=== PATIENT | male | born 1945 | race Caucasian/White ===

== ENCOUNTER 2017-02-03 09:09 | Inpatient (IN) | payer OTHER ==
[2017-02-03] MEDS ORDERED: LOPERAMIDE HCL 1 MG/5 ML UDCUP PO PRN (18:06)
[2017-02-03] MEDS ORDERED: ALBUTEROL 60 PUFFS/8 GM MDI IH PRN (19:14)
--- NOTE | 2017-02-03 19:28 | GHP ---
[f rep st] HISTORY AND PHYSICAL POST ADMISSION PHYSICIAN EVALUATION AND REHABILITATION TREATMENT PLAN DATE OF ADMISSION: 02/03/2017 DATE OF EVALUATION: 02/03/2017 TIME OF EVALUATION: 17:25 REFERRING FACILITY: [facility] REFERRING PHYSICIAN: Dr. Avel Lentz MD IMPAIRMENT GROUP: 1.1. DATE OF ONSET: 02/01/2017 REHABLITATION DIAGNOSIS: Right basal ganglia cerebrovascular accident with left upper and lower extremity weakness and dysphagia. ETIOLOGIC DIAGNOSIS: Left body involvement (right brain). CONSULTING PHYSICIANS: He was seen in consultation by Neurology. HISTORY OF PRESENT ILLNESS: This patient developed left-sided weakness on 02/01. Symptoms had begun the night before when he went to bed. He awoke his at 4:30 in the morning and let her know that he could not move his left side and could not talk. She called an ambulance, and he was brought to the emergency department at [facility]. Brain imaging showed a right MCA territory ischemic infarct in the basal ganglia. He had left hemiparesis. He has had some improvement since initial presentation. He has been participating in physical therapy, occupational therapy, and speech therapy. He was started on aspirin, atorvastatin, and permissive hypertension. Onset of symptoms was too remote for thrombolysis. Echocardiogram showed no cardiac source. Telemetry monitoring did not show atrial fibrillation. He had significantly elevated blood pressure and lisinopril was restarted after initiating permissive hypertension. He had bradycardia, so metoprolol was not restarted. He had some feelings of depression and was started on sertraline during his hospital stay. OTHER LABORATORIES AND STUDIES DURING HIS STAY: MRI of the brain showed some petechial hemorrhage in the right basal ganglia, and a tiny probable subacute infarct within the left marc and chronic white matter microangiopathic changes. CT angiogram showed atherosclerosis, mild in the bilateral carotid arteries, chronic occlusion of the left V3, and left proximal C4 vertebral artery segments with retrograde filling, severe atherosclerotic narrowing of the open portion of the left intradural vertebral artery. Moderate narrowing of the proximal basilar artery and mild narrowing of the right cervical internal carotid artery. Echocardiogram was overall within normal limits with an ejection fraction of 66. LABORATORY DATA: Basic metabolic profile was overall within normal limits. He had a slightly low calcium at 8.4, and a slightly elevated glucose at 138. A lipid panel showed a triglyceride of 320 and an HDL of 31. Total cholesterol was 167. LDL was 72. CBC on February 01 showed an elevated white blood cell count at 11.37 and otherwise was within normal limits. INR was normal. Troponin-I was normal. PRECAUTIONS: He is a fall risk. He has aspiration precautions. ACTIVE COMORBIDITIES: He has the tier 3 comorbidities of hemiparesis and diabetes mellitus with manifestations. PAST MEDICAL HISTORY: 1. Pneumonia in 2014 with hospitalization and bronchoscopy for mucous plugging. 2. Tobacco dependence syndrome. 3. Diabetes mellitus, type 2. 4. Peripheral vascular disease. 5. Essential hypertension. 6. Dyslipidemia. 7. Diabetic peripheral neuropathy. 8. Alzheimer disease. 9. Coronary artery disease. 10. Cataracts. 11. Chronic intermittent diarrhea. PAST SURGICAL HISTORY: He had cataract surgery 3 weeks ago and approximately 1 week ago he had blepharoplasty. He has had peripheral angiography, atherectomy of the right superficial femoral artery, and balloon angioplasty in the right superficial femoral artery. He also had left lower extremity percutaneous intervention for peripheral vascular disease. PRE-HOSPITAL MEDICATIONS: 1. Loperamide on a p.r.n. basis. 2. Aspirin 325 mg p.o. daily. 3. Diclofenac 0.1% ophthalmic drops to both eyes twice daily. 4. Donepezil 23 mg p.o. daily. 5. Erythromycin 0.5% ophthalmic ointment to sutures from blepharoplasty twice daily for 1 more week. 6. Gabapentin 1200 mg p.o. twice daily. 7. Glipizide 5 mg p.o. twice daily. 8. Glucosamine 1 tablet by mouth daily. 9. Memantine 10 mg p.o. daily. 10. Metformin 500 mg p.o. twice daily. 11. Ofloxacin 0.3% ophthalmic drops to both eyes every 6 hours. 12. Fish oil 1 capsule daily. 13. Ocuvite 1 tablet daily. 14. Vitamin B complex 1 tablet daily. 15. Lisinopril. 16. Ibuprofen 200 mg p.o. p.r.n. 17. Metoprolol-XL 50 mg daily. 18. Simvastatin 20 mg daily. ADMISSION MEDICATIONS: 1. Acetaminophen 650 mg p.o. q.6 hours p.r.n. 2. Aspirin 325 mg p.o. daily. 3. Atorvastatin 40 mg p.o. at bedtime. 4. Ocuvite 1 daily. 5. Diclofenac 0.1% eye drops each eye twice daily. 6. Donepezil 23 mg p.o. daily. 7. Erythromycin 0.5% ophthalmic ointment to sutures on eyelids twice daily. 8. Gabapentin 1200 mg p.o. twice daily. 9. Glipizide 5 mg p.o. twice daily. 10. Glucosamine/chondroitin one p.o. daily. 11. Lisinopril 10 mg p.o. daily. 12. Memantine 10 mg p.o. daily. 13. Metformin 500 mg p.o. twice daily. 14. Nicotine patch 21 mg transdermal daily. 15. Ofloxacin 0.3% 1 drop each eye q.6 hours. 16. [place]-3 fatty acids 1000 mg p.o. daily. 17. Vitamin B complex 1 p.o. daily. ALLERGIES: Listed to sulfonamide antibiotics. FAMILY HISTORY: Noncontributory. PSYCHOSOCIAL HISTORY: He is . He lives with his . He is a smoker. 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 REVIEW OF SYSTEMS: He is coughing and producing considerable phlegm. He denies carl dyspnea. He denies chest pain or palpitations. He has been having some diarrhea, which he has intermittently. He denies abdominal pain, nausea or vomiting. He denies dysuria or urinary frequency. He denies fevers or chills. He denies recent weight gain or weight loss. He is not in pain. He has some return of movement to his left arm and left leg, but notes that he lacks coordination with the left arm in particular and otherwise a 10-point review of systems is negative. PHYSICAL EXAMINATION: VITAL SIGNS: Blood pressure is 167/86, heart rate is 59 , respiratory rate is 18. Oxygen saturation is 93% on room air. Temperature is 36.7 degrees centigrade. His weight is 84.3 kg for a body mass index of 25.2. GENERAL: This is an overweight appearing man lying in bed, cooperative with frequent coughing and in no acute distress. HEENT: There are sutured incisions laterally over both eyebrows and over both upper eyelids. There is no erythema or drainage. Extraocular movements are intact. Pupils are equal, round, and reactive to light. Mucous membranes are moist. Dentition is in good condition. He has a somewhat crowded airway, Mallampati class III. NECK: Supple with no jugular venous distention. HEART: There is a regular rate and rhythm with no murmurs, rubs, or gallops. LUNGS: Reduced air movement. There are expiratory wheezes and a few fine crackles in the left lower lobe, and otherwise are clear to auscultation bilaterally. ABDOMEN: Soft, nontender, somewhat distended with normoactive bowel sounds and no hepatosplenomegaly. EXTREMITIES: There is no cyanosis, clubbing, or edema. Feet are cool, the left foot more so than the right foot. Radial pulses are 2 + bilaterally. Dorsalis pedis pulses are trace. NEUROLOGIC: He is alert and oriented x3. There is a left facial droop and otherwise cranial nerves 2-12 are grossly intact. Motor strength is 5/5 overall on the right side; on the left side is 4/5 in the hand dry talc racker, biceps, triceps, and shoulder abduction and 4 /5 overall on the left lower extremity. Sensation is intact to light touch. Deep tendon reflexes are 2+ bilaterally at the biceps and patella, and hypoactive at the Achilles tendons. Babinski reflex is indeterminant bilaterally. He has no extinction to double simultaneous stimulation. SKIN: Without skin rash or skin breakdown. CURRENT LEVEL OF FUNCTION: Per the preadmission screen: Regarding diet, feeding, and swallowing, he was on pureed and honey thick liquids. This has improved as his discharge orders call for dysphagia 2 and nectar thick liquids. Regarding grooming, he required moderate assistance. Regarding dressing, the upper extremity and lower extremities both required maximal assistance. Bladder required moderate assistance. Bed mobility required max assistance of 2 people. This has improved on the current exam. He can sit up with the assistance of 1. Transfers required maximal assistance of 2 people. Balance was noted to be poor while standing, requiring moderate assistance, and fair while sitting, requiring minimal assistance. Endurance was poor. He had pregait training. He had decreased postural control listing to the left and difficulty maintaining the left lower extremity extension while standing. He was noted to have moderate dysarthria and left facial weakness. Regarding cognition, his orientation was mildly impaired. He had otherwise mild impairment to cognition noted. IMPRESSION: Mr. Chris Lopez is a 71-year-old man who suffered a left basal ganglia cerebrovascular accident, most likely atherosclerotic with no embolic sources found on echocardiogram. There is extensive cerebrovascular disease on cerebral CT angiography. He has been allowed permissive hypertension. He has been treated with aspirin. He has been stepped up to more intensive statin medication. Metoprolol ER was discontinued due to bradycardia. He is appropriate for inpatient rehabilitation where he will benefit from physical and occupational therapies to optimize his his mobility and activities of daily living and speech language pathology regarding swallowing and cognition. He will require nursing care for fall risk, bowel and bladder, skin integrity, medication administration, and education, and he will benefit from care of a physician for comorbidities including hypertension, type 2 diabetes mellitus, peripheral vascular disease, and coronary artery disease. His goal is to return home with his family. For a safe discharge it is expected he will achieve modified independence with mobility, activities of daily living, and cognition. There will be medication education for he and his family for appropriate medication management. There will be neurologic education for the patient and family. He will have therapy with physical therapy, occupational therapy, and speech and language pathology for 45-60 minutes per day per discipline on 5-7 days of the week. His expected duration of stay is 12-14 days. It is anticipated that upon discharge, he will continue to benefit from home health services, including speech and language pathology, occupational therapy, and physical therapy, as well as a stroke support group. ASSESSMENT AND PLAN: 1. Cerebrovascular accident, left basal ganglia with left-sided hemiparesis. Physical therapy and occupational therapy to optimize mobility and activities of daily living. 2. Dysphagia and cognitive impairment, as a consequence of stroke to be assessed and treated by Speech and Language Pathology. 3. Secondary stroke prevention with blood pressure control, statin, and aspirin. 4. Hypertension. The plan regarding permissive hypertension to keep the systolic blood pressure less than 180 mg for the first week, then less than 160 mg for the second week (starting 02/09/17), and then less than 130/80 for the third week. Continue lisinopril and add subsequent medications as indicated. 5. Intermittent diarrhea. Add Imodium on a p.r.n. basis, as has been his habit at home. 6. He was started on sertraline in the hospital. Will initiate fluoxetine and not continue sertraline for optimal neurologic recovery in the hemiparetic stroke. 7. Diabetes mellitus, type 2. Continue metformin and glipizide. 8. Dementia. Given his vascula findings on brain imaging, this is as likely a vascular dementia as it is Alzheimer's. Continue memantine and donepezil. 9. Recent cataract surgery and recent left blepharoplasty. The erythromycin ophthalmic ointment is to be continued on sutures for 1 week. His reports that he was due for suture removal, and we will assess the sutures and determine whether they are ready to come out. Regarding the cataracts, he is ofloxacin eye drops, and diclofenac eyedrops with no end date. It has been 3 weeks since his surgery. The change house attendant was Dr. Lopez in [place]. We will contact his office on MondayFebruary 06, when the office is open to determine the intended duration of the eyedrops. 10. Cough with phlegm production. I have ordered a stat CBC and a stat chest x -ray, and will treat aggressively for pneumonia if he has pneumonia. 11. 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 Continue gabapentin. 12. Peripheral vascular disease. Will benefit from the same aggressive risk factor control, as will be in place for his cerebrovascular disease. 13. Prophylaxis. He was treated with subcutaneous heparin in the hospital. We will continue enoxaparin on a prophylactic dose until his mobility has improved to the point where his risk for DVT is reduced. 14. He had do not resuscitate orders in the hospital, and we will continue this status. /[id number]/MODL MTDD
[2017-02-03 19:47] LABS: % IMMATURE GRANULYOCYTES 0.2 % (0.0-1.1); ABSOLUTE IMMATURE GRANULOCYTES 0.02 10^3/uL (0.00-0.10); ADD DIFF? NO; ADD MORPH? NO; ADD SCAN? NO; ATYPICAL LYMPHOCYTE FLAG 10 (0-99); FRAGMENT RBC FLAG 0 (0-99); HEMATOCRIT 52.7 % (40.0-51.0); HEMOGLOBIN 18.8 g/dL (13.7-17.5); LEFT SHIFT FLG 0 (0-99); LIPEMIA HEMOLYSIS FLAG 90 (0-99); MEAN CELL HEMOGLOBIN 32.4 pg (27.9-34.1); MEAN CELL HEMOGLOBIN CONCENTR. 35.7 g/dL (32.4-36.7); MEAN CELL VOLUME 90.9 fL (81.5-99.8); MEAN PLATELET VOLUME 10.3 fL (8.7-11.7); PLATELET CLUMPS FLAG 0 (0-99); PLATELET COUNT 193 10^3/uL (150-400); RED CELL DISTRIBUTION WIDTH 12.3 % (11.5-15.2)
[2017-02-03] MEDS: glipiZIDE 5 MG TAB PO SCH (19:47)
[2017-02-03] MEDS: metFORMIN HCL 500 MG TAB PO SCH (19:47)
[2017-02-03] MEDS: PRESERVISION AREDS2 FORMULA EYE VIT 1 EACH PO SCH (20:12)
[2017-02-03] MEDS: GABAPENTIN 400 MG CAP PO SCH (20:26)
[2017-02-03] MEDS: ATORVASTATIN CALCIUM 40 MG TAB PO SCH (20:26)
[2017-02-03] MEDS: ERYTHROMYCIN 0.5% 1 GM OPHT.OINT EACHEYE SCH (20:26)
[2017-02-03] MEDS: OFLOXACIN 0.3% 5ML OPHT DROPS EACHEYE SCH ×2 (20:30→21:12)
[2017-02-03] MEDS: DICLOFENAC 0.1% 2.5 ML OPHT.BTL EACHEYE SCH ×2 (20:30→21:11)
[2017-02-04] MEDS: OFLOXACIN 0.3% 5ML OPHT DROPS EACHEYE SCH ×3 (06:21→12:24)
[2017-02-04 07:59] LABS: % IMMATURE GRANULYOCYTES 0.3 % (0.0-1.1); ABSOLUTE IMMATURE GRANULOCYTES 0.03 10^3/uL (0.00-0.10); ADD DIFF? NO; ADD MORPH? NO; ADD SCAN? NO; ATYPICAL LYMPHOCYTE FLAG 0 (0-99); FRAGMENT RBC FLAG 0 (0-99); HEMATOCRIT 52.8 % (40.0-51.0); HEMOGLOBIN 18.6 g/dL (13.7-17.5); LEFT SHIFT FLG 0 (0-99); LIPEMIA HEMOLYSIS FLAG 90 (0-99); MEAN CELL HEMOGLOBIN 32.2 pg (27.9-34.1); MEAN CELL HEMOGLOBIN CONCENTR. 35.2 g/dL (32.4-36.7); MEAN CELL VOLUME 91.3 fL (81.5-99.8); MEAN PLATELET VOLUME 10.3 fL (8.7-11.7); PLATELET CLUMPS FLAG 0 (0-99); PLATELET COUNT 174 10^3/uL (150-400); RED BLOOD CELL COUNT 5.78 10^6/uL (4.40-6.38); RED CELL DISTRIBUTION WIDTH 12.1 % (11.5-15.2)
[2017-02-04 08:08] LABS: ANION GAP 11 mEq/L (8-16); CALCIUM 9.1 mg/dL (8.5-10.4); CARBON DIOXIDE 24 mEq/l (22-31); CHLORIDE 106 mEq/L (97-110); CREATININE 1.1 mg/dL (0.7-1.3); GLOMERULAR FILTRATION RATE > 60; GLUCOSE 174 mg/dL (70-100); SODIUM 141 mEq/L (134-144)
[2017-02-04] MEDS: NICOTINE 21 MG/24 HR PATCH TD SCH (08:19)
[2017-02-04] MEDS: ENOXAPARIN 40 MG/0.4 ML SYR SC SCH (08:20)
[2017-02-04] MEDS: metFORMIN HCL 500 MG TAB PO SCH ×2 (08:21→17:30)
[2017-02-04] MEDS: GABAPENTIN 400 MG CAP PO SCH ×2 (08:22→20:58)
[2017-02-04] MEDS: LISINOPRIL 10 MG TAB PO SCH (08:22)
[2017-02-04] MEDS: ASPIRIN 325 MG TAB PO SCH (08:22)
[2017-02-04] MEDS: PRESERVISION AREDS2 FORMULA EYE VIT 1 EACH PO SCH ×2 (08:22→17:30)
[2017-02-04] MEDS: VITAMIN B COMPLEX 1 EA CAP/TAB PO SCH (08:22)
[2017-02-04] MEDS: MEMANTINE HCL 5 MG TAB PO SCH (08:22)
[2017-02-04] MEDS: glipiZIDE 5 MG TAB PO SCH ×2 (08:23→17:29)
[2017-02-04] MEDS: OMEGA-3 FATTY ACIDS 1,000 MG CAP PO SCH (08:23)
[2017-02-04] MEDS: GLUCOSAMINE/CHONDROITIN CAP PO SCH (08:23)
[2017-02-04] MEDS: Donepezil Hcl [Aricept] 23 MG PO SCH (08:25)
[2017-02-04] MEDS: ERYTHROMYCIN 0.5% 1 GM OPHT.OINT EACHEYE SCH ×2 (08:27→20:57)
[2017-02-04] MEDS: DICLOFENAC 0.1% 2.5 ML OPHT.BTL EACHEYE SCH (08:28)
[2017-02-04] MEDS: SERTRALINE HCL 25 MG TAB PO SCH (12:28)
[2017-02-04] MEDS: NYSTATIN SUSP 500000 UNIT/5 ML UDCUP PO SCH ×3 (12:47→20:58)
--- NOTE | 2017-02-04 14:56 | SOAPPROG ---
SOAP Progress Note Assessment/Plan: 71yo M admitted due to functional decline 2/2 R basal ganglia CVA with multiple comorbidities; DM2, HTN, dyslipidemia, PVD, dementia, chronic intermittent diarrhea. 1. 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 statin, ASA 325mg -Motor recovery: would prefer to be on sertraline per home regiment, will switch from current fluoxetine 2. HTN-Permissive to systolics of 180 for 1st week, 160 for 2nd week, then less than 130/80. cont. lisinopril 3. Intermittent Diarrhea- cont. Imodium prn (per home regiment) 4. DM2, cont. metformin and glipizide 5. Dementia- probable vascular given MR findings, cont. memantine and donepezil 6. S/p recent cataract surgery and left blepharoplasty-cont. erythomycin ointment for 1 week, RN d/w optho (Dr. Fabian in [place]) and ok to d/c eye drops today. 7. Peripheral Polyneuropathy- cont. gabapentin 8. PVD- prophy per stroke protocol 9. Productive Cough- WBCs stable from OSH, CXR with some bronchial thickening but no consolidation, symptoms improving, will CTM 10. prophy- cont LMWH, no GI indicated Code Status: DNR per prior hospital admission, will cont. Dispo: home with , MERARY 14 days 02/04/17 15:08 Subjective: Cough improving this a.m, and prior CXR with just some bronchial thickening, WBC stable, no fevers. Feeling well this a.m. denies SOB/chills. Objective: Vital Signs Temp Pulse Resp BP Pulse Ox 36.8 C 64 16 118/66 93 02/04/17 14:24 02/04/17 14:24 02/04/17 14:24 02/04/17 14:24 02/04/17 14:24 Laboratory Results 02/04/17 06:40 02/04/17 06:40 02/03/17 02/04/17 02/05/17 05:59 05:59 05:59 Intake Total 160 Output Total 450 Balance -450 160 Laboratory Tests 02/03/17 02/04/17 18:00 06:40 WBC 10.21 H 10.84 H Hgb 18.8 H 18.6 H - Pending Discharge Pending Discharge Within 24 Hours: No Pending Discharge Within 48 Hours: No Physical Exam - Physical Exam General Appearance: alert, no apparent distress Neck: supple Respiratory: lungs clear, other (decreased effort), No crackles, No rales, No wheezing Cardiac/Chest: regular rate, rhythm Abdomen: non-tender, soft Skin: normal color, warm/dry Neuro/Psych: alert, normal mood/affect, oriented x 3, motor weakness ICD10 Worksheet Patient Problems: Problems Problem Status Onset Chronic Disease Mgmt/Transitional Care Acute PNA (pneumonia) Acute PVD (peripheral vascular disease) Acute Tobacco abuse Acute
[2017-02-04] MEDS: ATORVASTATIN CALCIUM 40 MG TAB PO SCH (20:58)
[2017-02-05] MEDS: NYSTATIN SUSP 500000 UNIT/5 ML UDCUP PO SCH ×4 (05:55→20:47)
[2017-02-05] MEDS: SERTRALINE HCL 25 MG TAB PO SCH (08:25)
[2017-02-05] MEDS: OMEGA-3 FATTY ACIDS 1,000 MG CAP PO SCH (08:27)
[2017-02-05] MEDS: GLUCOSAMINE/CHONDROITIN CAP PO SCH (08:29)
[2017-02-05] MEDS: MEMANTINE HCL 5 MG TAB PO SCH (08:30)
[2017-02-05] MEDS: glipiZIDE 5 MG TAB PO SCH ×2 (08:31→17:02)
[2017-02-05] MEDS: ENOXAPARIN 40 MG/0.4 ML SYR SC SCH (08:31)
[2017-02-05] MEDS: GABAPENTIN 400 MG CAP PO SCH ×2 (08:31→20:47)
[2017-02-05] MEDS: LISINOPRIL 10 MG TAB PO SCH (08:31)
[2017-02-05] MEDS: VITAMIN B COMPLEX 1 EA CAP/TAB PO SCH (08:31)
[2017-02-05] MEDS: PRESERVISION AREDS2 FORMULA EYE VIT 1 EACH PO SCH ×2 (08:31→17:02)
[2017-02-05] MEDS: ASPIRIN 325 MG TAB PO SCH (08:31)
[2017-02-05] MEDS: ERYTHROMYCIN 0.5% 1 GM OPHT.OINT EACHEYE SCH ×2 (08:34→20:47)
[2017-02-05] MEDS: NICOTINE 21 MG/24 HR PATCH TD SCH (08:36)
[2017-02-05] MEDS: metFORMIN HCL 500 MG TAB PO SCH ×2 (08:40→17:02)
[2017-02-05] MEDS ORDERED: SERTRALINE HCL 25 MG TAB PO SCH (09:00)
--- NOTE | 2017-02-05 14:30 | SOAPPROG ---
SOAP Progress Note Assessment/Plan: 71yo M admitted due to functional decline 2/2 R basal ganglia CVA with multiple comorbidities; DM2, HTN, dyslipidemia, PVD, dementia, chronic intermittent diarrhea. 1. 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 statin, ASA 325mg -Motor recovery: would prefer to be on sertraline per home regiment 2. HTN-Permissive to systolics of 180 for 1st week, 160 for 2nd week, then less than 130/80. cont. lisinopril 3. Intermittent Diarrhea- cont. Imodium prn (per home regiment) 4. DM2, cont. metformin and glipizide 5. Dementia- probable vascular given MR findings, cont. memantine and donepezil 6. S/p recent cataract surgery and left blepharoplasty-cont. erythomycin ointment for 1 week, RN d/w optho (Dr. Fabian in [place]) and ok to d/c eye drops, will come this week to remove sutures 7. Peripheral Polyneuropathy- cont. gabapentin 8. PVD- prophy per stroke protocol 9. Productive Cough- WBCs stable from OSH, CXR with some bronchial thickening but no consolidation, symptoms improving, will CTM 10. prophy- cont LMWH, no GI indicated Code Status: DNR per prior hospital admission, will cont. Dispo: home with MERARY 14 days Subjective: No events. C/o lethargy, is sleeping reasonably well at night but has nohemy skipping usual afternoon nap. Will try to have this scheduled into therapy. Denies cough/SOB/pain. Objective: Vital Signs Temp Pulse Resp BP Pulse Ox 36.9 C 76 16 147/70 H 91 L 02/05/17 07:08 02/05/17 07:08 02/05/17 07:08 02/05/17 07:08 02/05/17 07:08 Laboratory Results 02/04/17 06:40 02/04/17 06:40 02/04/17 02/05/17 02/06/17 05:59 05:59 05:59 Intake Total 260 118 Output Total 450 550 Balance -450 -290 118 - Pending Discharge Pending Discharge Within 24 Hours: No Pending Discharge Within 48 Hours: No Physical Exam - Physical Exam General Appearance: alert, no apparent distress Neck: supple Respiratory: lungs clear, normal breath sounds, No respiratory distress, No accessory muscle use, No wheezing Cardiac/Chest: regular rate, rhythm Abdomen: non-tender, soft Skin: normal color, warm/dry Neuro/Psych: alert, normal mood/affect, motor weakness ICD10 Worksheet Patient Problems: Problems Problem Status Onset Chronic Disease Mgmt/Transitional Care Acute PNA (pneumonia) Acute PVD (peripheral vascular disease) Acute Tobacco abuse Acute
[2017-02-05] MEDS: Donepezil Hcl [Aricept] 23 MG PO SCH (16:15)
[2017-02-05] MEDS: ATORVASTATIN CALCIUM 40 MG TAB PO SCH (20:47)
[2017-02-06] MEDS: NYSTATIN SUSP 500000 UNIT/5 ML UDCUP PO SCH ×4 (05:48→21:01)
[2017-02-06] MEDS: ENOXAPARIN 40 MG/0.4 ML SYR SC SCH (08:52)
[2017-02-06] MEDS: PRESERVISION AREDS2 FORMULA EYE VIT 1 EACH PO SCH ×2 (08:53→17:13)
[2017-02-06] MEDS: ASPIRIN 325 MG TAB PO SCH (08:53)
[2017-02-06] MEDS: GABAPENTIN 400 MG CAP PO SCH ×2 (08:54→21:00)
[2017-02-06] MEDS: MEMANTINE HCL 5 MG TAB PO SCH (08:55)
[2017-02-06] MEDS: glipiZIDE 5 MG TAB PO SCH ×2 (08:55→17:13)
[2017-02-06] MEDS: LISINOPRIL 10 MG TAB PO SCH (08:55)
[2017-02-06] MEDS: VITAMIN B COMPLEX 1 EA CAP/TAB PO SCH (08:56)
[2017-02-06] MEDS: NICOTINE 21 MG/24 HR PATCH TD SCH (08:56)
[2017-02-06] MEDS: OMEGA-3 FATTY ACIDS 1,000 MG CAP PO SCH (08:56)
[2017-02-06] MEDS: metFORMIN HCL 500 MG TAB PO SCH ×2 (08:57→17:14)
[2017-02-06] MEDS: GLUCOSAMINE/CHONDROITIN CAP PO SCH (08:58)
--- NOTE | 2017-02-06 09:41 | PDOREHIP ---
Admission [facility] - Admission - 3 Day Assessment Period Admission Date/Day 1: 02/03/17 Day 2: 02/04/17 Day 3: 02/05/17 - Active Diagnoses Comorbidities and Co-existing Conditions at Admission: 39149. PVD or PAD, 04809. DM (e.g. diabetic retinopathy, nephropathy, and neuropathy) - Skin Conditions Unhealed Pressure Ulcer (1 or more/Stage 1 or >)-Admission: 0. No
--- NOTE | 2017-02-06 09:42 | SOAPPROG ---
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 Initial [id number]. Mod A bed mobility, min - modA of 2 for transfers, standing balance min to mod A. Physical therapy and occupational therapy to optimize mobility and activities of daily living. * Dysphagia and cognitive impairment. DD2 NTL texture with cueing to slow down.. Moderate dysarthria, worse with fatigue. Decreased exec fn, SOP, attn. Continue Speech and Language Pathology. * Secondary stroke prevention with blood pressure control, statin, and aspirin. * Permissive Hypertension. Keep the systolic blood pressure less than 180 mg for the first week, then less than 160 mg for the second week (starting 02/09/17) , and then less than 130/80 for the third week. Continue lisinopril and add subsequent medications as indicated. * Recent cataract surgery and recent left blepharoplasty. The erythromycin ophthalmic ointment is to be continued on sutures for 1 week. His reports that he was due for suture removal, and we will assess the sutures and determine whether they are ready to come out. Regarding the cataracts, he is ofloxacin eye drops, and diclofenac eyedrops with no end date. It has been 3 weeks since his surgery. The metaphysics teacher was Dr. Lopez in [place]. We will contact his office on MondayFebruary 06, when the office is open to determine the intended duration of the eyedrops. Chronic/stable conditions: * Intermittent diarrhea. Add Imodium on a p.r.n. basis, as has been his habit at home. * Depression? Prefers sertraline to fluoxetine so sertraline was restarted ( fluoxetine had been stared for neurorecovery). Asks for HS dosing as he thinks it is sedating. * Diabetes mellitus, type 2. Continue metformin and glipizide. * Dementia. Given his vascular findings on brain imaging, this is as likely a vascular dementia as it is Alzheimer's. Continue memantine and donepezil. * Cough with phlegm production, resolved. Leukocytosis on CBC 02/03/17 & but cough much improved and hypoxia mostly at night and not severe; CXR showed bronchitis; no treatment at present.. 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 Continue gabapentin. * Peripheral vascular disease. Will benefit from the same aggressive risk factor control, as will be in place for his cerebrovascular disease. * Prophylaxis. He was treated with subcutaneous heparin in the hospital. We will continue enoxaparin on a prophylactic dose until his mobility has improved to the point where his risk for DVT is reduced. Attended staffing, 15 min. D/W case mgmt, nursing, PT, OT, LOGISTICS MANAGER. Expect up to 4 - 6 weeks LOS; tentative discharge date 02/26/17. Reassess weekly. 02/06/17 14:24 Subjective: Nurse reports he wants sertraline at bedtime, as it makes him sleepy. Requests "5 hour energy" supplement in the afternoon. Reports his usual habit at home is t stay up late and sleep late. Thinks he sleeps well, though he awakens during the night. Says he snores sometimes. Objective: Vital Signs Temp Pulse Resp BP Pulse Ox 36.9 C 67 19 138/87 H 94 02/06/17 07:40 02/06/17 07:40 02/06/17 07:40 02/06/17 08:55 02/06/17 07:40 Laboratory Results 02/04/17 06:40 02/04/17 06:40 02/05/17 02/06/17 02/07/17 05:59 05:59 05:59 Intake Total 260 554 120 Output Total 550 150 Balance -290 404 120 - Time Spent With Patient Time Spent With Patient: Greater than 35 minutes floor time today, including more than 50% of time in coordination of care during staffing meeting, and counseling patient. 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
[2017-02-06] MEDS: Donepezil Hcl [Aricept] 23 MG PO SCH (10:45)
[2017-02-06] MEDS: ERYTHROMYCIN 0.5% 1 GM OPHT.OINT EACHEYE SCH ×2 (10:46→21:08)
[2017-02-06] MEDS: SERTRALINE HCL 25 MG TAB PO SCH (10:46)
--- NOTE | 2017-02-06 13:47 | SOAPPROG ---
SOAP Progress Note Assessment/Plan: Assessment: 1. Cerebrovascular accident, left basal ganglia with left-sided hemiparesis. Physical therapy and occupational therapy to optimize mobility and activities of daily living. 2. Dysphagia and cognitive impairment, as a consequence of stroke to be assessed and treated by Speech and Language Pathology. 3. Secondary stroke prevention with blood pressure control, statin, and aspirin. 4. Hypertension. The plan regarding permissive hypertension to keep the systolic blood pressure less than 180 mg for the first week, then less than 160 mg for the second week (starting 02/09/17), and then less than 130/80 for the third week. Continue lisinopril and add subsequent medications as indicated. 5. Intermittent diarrhea. Add Imodium on a p.r.n. basis, as has been his habit at home. 6. He was started on sertraline in the hospital. Will initiate fluoxetine and not continue sertraline for optimal neurologic recovery in the hemiparetic stroke. 7. Diabetes mellitus, type 2. Continue metformin and glipizide. 8. Dementia. Given his vascula findings on brain imaging, this is as likely a vascular dementia as it is Alzheimer's. Continue memantine and donepezil. 9. Recent cataract surgery and recent left blepharoplasty. The erythromycin ophthalmic ointment is to be continued on sutures for 1 week. His reports that he was due for suture removal, and we will assess the sutures and determine whether they are ready to come out. Regarding the cataracts, he is ofloxacin eye drops, and diclofenac eyedrops with no end date. It has been 3 weeks since his surgery. The hog killer was Dr. Lopez in [place]. We will contact his office on MondayFebruary 06, when the office is open to determine the intended duration of the eyedrops. 10. Cough with phlegm production. I have ordered a stat CBC and a stat chest x -ray, and will treat aggressively for pneumonia if he has pneumonia. 11. 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 Continue gabapentin. 12. Peripheral vascular disease. Will benefit from the same aggressive risk factor control, as will be in place for his cerebrovascular disease. 13. Prophylaxis. He was treated with subcutaneous heparin in the hospital. We will continue enoxaparin on a prophylactic dose until his mobility has improved to the point where his risk for DVT is reduced. 02/06/17 09:42 Objective: Vital Signs Temp Pulse Resp BP Pulse Ox 36.9 C 67 19 138/87 H 94 02/06/17 07:40 02/06/17 07:40 02/06/17 07:40 02/06/17 08:55 02/06/17 07:40 Laboratory Results 02/04/17 06:40 02/04/17 06:40 02/05/17 02/06/17 02/07/17 05:59 05:59 05:59 Intake Total 260 554 220 Output Total 550 150 125 Balance -290 404 95 - Time Spent With Patient Time Spent With Patient: Greater than 35 minutes floor time today, including more than 50% of time in coordination of care during staffing meeting, and counseling patient. ICD10 Worksheet Patient Problems: Problems Problem Status Onset Chronic Disease Mgmt/Transitional Care Acute PNA (pneumonia) Acute PVD (peripheral vascular disease) Acute Tobacco abuse Acute
[2017-02-06] MEDS ORDERED: [UNRECOGNIZED DRUG - OTHER] PO PRN (14:20)
[2017-02-06] MEDS: [UNRECOGNIZED DRUG - OTHER] PO PRN (15:43)
[2017-02-06] MEDS ORDERED: MELATONIN 3 MG TAB PO PRN (20:18)
[2017-02-06] MEDS: ATORVASTATIN CALCIUM 40 MG TAB PO SCH (21:00)
[2017-02-06] MEDS ORDERED: SERTRALINE HCL 25 MG TAB PO SCH (21:00)
[2017-02-07] MEDS: NYSTATIN SUSP 500000 UNIT/5 ML UDCUP PO SCH ×4 (05:28→20:44)
[2017-02-07] MEDS: glipiZIDE 5 MG TAB PO SCH ×2 (08:30→16:39)
[2017-02-07] MEDS: LOPERAMIDE HCL 2 MG CAP PO PRN (09:21)
[2017-02-07] MEDS ORDERED: LOPERAMIDE HCL 2 MG CAP PO ONE (09:28)
[2017-02-07] MEDS: ASPIRIN 325 MG TAB PO SCH (09:59)
[2017-02-07] MEDS: PRESERVISION AREDS2 FORMULA EYE VIT 1 EACH PO SCH ×2 (09:59→16:39)
[2017-02-07] MEDS: ENOXAPARIN 40 MG/0.4 ML SYR SC SCH (10:00)
[2017-02-07] MEDS: Donepezil Hcl [Aricept] 23 MG PO SCH (10:00)
[2017-02-07] MEDS: ERYTHROMYCIN 0.5% 1 GM OPHT.OINT EACHEYE SCH ×2 (10:02→20:46)
[2017-02-07] MEDS: GABAPENTIN 400 MG CAP PO SCH ×2 (10:02→20:45)
[2017-02-07] MEDS: LISINOPRIL 10 MG TAB PO SCH (10:03)
[2017-02-07] MEDS: MEMANTINE HCL 5 MG TAB PO SCH (10:03)
[2017-02-07] MEDS: GLUCOSAMINE/CHONDROITIN CAP PO SCH (10:03)
[2017-02-07] MEDS: metFORMIN HCL 500 MG TAB PO SCH ×2 (10:03→16:39)
[2017-02-07] MEDS: VITAMIN B COMPLEX 1 EA CAP/TAB PO SCH (10:04)
[2017-02-07] MEDS: NICOTINE 21 MG/24 HR PATCH TD SCH (10:04)
[2017-02-07] MEDS: OMEGA-3 FATTY ACIDS 1,000 MG CAP PO SCH (10:04)
--- NOTE | 2017-02-07 10:14 | SOAPPROG ---
SOAP Progress Note Assessment/Plan: Assessment: 71 yo M who suffered a CVA R MCA on 01/23/17 with L weakness, dysphagia and dysarthria, and comorbid CAD, CHF, COPD, DM2: 02/07/2017 to clarify, it does not appear that patient has been on fluoxetine in the past. Patient desires to switch to fluoxetine from Zoloft, will start dose tomorrow morning. Endorses some ongoing fatigue, normal TSH as of August 2016, no anemia. Giving one-time dose of Imodium 2 mg for diarrhea. Also notified Dr. Jones that the patient had a stroke and is currently on inpatient rehabilitation. 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 * Cerebrovascular accident, left basal ganglia with left-sided hemiparesis. Initial FIM63. Mod A bed mobility, min - modA of 2 for transfers, standing balance min to mod A. Physical therapy and occupational therapy to optimize mobility and activities of daily living. * Dysphagia and cognitive impairment. DD2 NTL texture with cueing to slow down.. Moderate dysarthria, worse with fatigue. Decreased exec fn, SOP, attn. Continue Speech and Language Pathology. * Secondary stroke prevention with blood pressure control, statin, and aspirin. * Permissive Hypertension. Keep the systolic blood pressure less than 180 mg for the first week, then less than 160 mg for the second week (starting 02/09/17) , and then less than 130/80 for the third week. Continue lisinopril and add subsequent medications as indicated. * Recent cataract surgery and recent left blepharoplasty. The erythromycin ophthalmic ointment is to be continued on sutures for 1 week. His reports that he was due for suture removal, and we will assess the sutures and determine whether they are ready to come out. Regarding the cataracts, he is ofloxacin eye drops, and diclofenac eyedrops with no end date. It has been 3 weeks since his surgery. The tractor drill operator was Dr. Lopez in [place]. We will contact his office on MondayFebruary 06, when the office is open to determine the intended duration of the eyedrops. * Depression: Has had some depression in the past, endorses low mood now without suicidal ideation. Switching from Zoloft to fluoxetine at his request. To clarify, it does not appear that he's been on fluoxetine in the past. * Fatigue: likely secondary to stroke, normal TSH, no anemia, no other clear etiologies at this point. Continue to follow Chronic/stable conditions: * Intermittent diarrhea. Add Imodium on a p.r.n. basis, as has been his habit at home. * Diabetes mellitus, type 2. Continue metformin and glipizide. * Dementia. Given his vascular findings on brain imaging, this is as likely a vascular dementia as it is Alzheimer's. Continue memantine and donepezil. Dr. Jones notified * Cough with phlegm production, resolved. Leukocytosis on CBC 02/03/17 & but cough much improved and hypoxia mostly at night and not severe; CXR showed bronchitis; no treatment at present.. 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 Continue gabapentin. * Peripheral vascular disease. Will benefit from the same aggressive risk factor control, as will be in place for his cerebrovascular disease. * Prophylaxis. He was treated with subcutaneous heparin in the hospital. We will continue enoxaparin on a prophylactic dose until his mobility has improved to the point where his risk for DVT is reduced. Expect up to 4 - 6 weeks LOS; tentative discharge date 02/26/17. Reassess weekly. Plan: 02/07/17 10:11 Subjective: CC: Fatigue no acute events overnight. Met with patient, , and daughter. Patient endorses some low mood, has had some pre-morbidly. Denies having been on fluoxetine in the past, was started on Zoloft at the end of his hospitalization and transferred to rehab. He does endorse that his therapies are somewhat limited by fatigue, and has had some of this issue in the past. He would take energy drinks twice a day. Unclear if this is worse for baseline. He also notes some mild diarrhea, he would take PRN Imodium as an outpatient which is requesting today. Also he is requesting that we notify Dr. Jones, his neurologist, that he has had a stroke. Denies any new shortness of breath, chest pain, any new numbness, tingling, or weakness. Objective: Vital Signs Temp Pulse Resp BP Pulse Ox 36.6 C 61 16 140/60 H 92 02/07/17 08:00 02/07/17 08:00 02/07/17 08:00 02/07/17 10:03 02/07/17 08:00 Laboratory Results 02/04/17 06:40 02/04/17 06:40 02/06/17 02/07/17 02/08/17 05:59 05:59 05:59 Intake Total 554 510 50 Output Total 150 575 Balance 404 -65 50 Physical Exam - Physical Exam General Appearance: WD/WN, alert, no apparent distress Respiratory: No respiratory distress, No accessory muscle use Cardiac/Chest: regular rate, rhythm, No edema Skin: normal color, warm/dry, cyanosis, other (incisions about eyes are healing , + ecchymosis) Lymphatic: no adenopathy, inguinal node tender (L) Extremities: No pedal edema, No swelling Neuro/Psych: alert, oriented x 3, motor weakness (also decreased rapid alternating movements on the left hand. ), depressed affect, No normal mood/ affect (low mood, congruent affect, slightly beligerent on greeting but softened when talking about his prior work) ICD10 Worksheet Patient Problems: Problems Problem Status Onset Chronic Disease Mgmt/Transitional Care Acute PNA (pneumonia) Acute PVD (peripheral vascular disease) Acute Tobacco abuse Acute
[2017-02-07] MEDS: BENEFIBER/NUTRISOURCE FIBER PKT 1 EACH PO SCH ×2 (12:50→20:43)
[2017-02-07] MEDS: [UNRECOGNIZED DRUG - OTHER] PO PRN (14:24)
[2017-02-07] MEDS: ATORVASTATIN CALCIUM 40 MG TAB PO SCH (20:45)
[2017-02-07] MEDS ORDERED: traZODone 50 MG TAB PO SCH (21:00)
[2017-02-08] MEDS: NYSTATIN SUSP 500000 UNIT/5 ML UDCUP PO SCH ×4 (05:57→20:31)
[2017-02-08] MEDS: NICOTINE 21 MG/24 HR PATCH TD SCH (08:10)
[2017-02-08] MEDS: glipiZIDE 5 MG TAB PO SCH ×2 (08:11→17:55)
[2017-02-08] MEDS: ASPIRIN 325 MG TAB PO SCH (08:11)
[2017-02-08] MEDS: GLUCOSAMINE/CHONDROITIN CAP PO SCH (08:11)
[2017-02-08] MEDS: BENEFIBER/NUTRISOURCE FIBER PKT 1 EACH PO SCH ×2 (08:11→20:12)
[2017-02-08] MEDS: MEMANTINE HCL 5 MG TAB PO SCH (08:11)
[2017-02-08] MEDS: VITAMIN B COMPLEX 1 EA CAP/TAB PO SCH (08:11)
[2017-02-08] MEDS: OMEGA-3 FATTY ACIDS 1,000 MG CAP PO SCH (08:11)
[2017-02-08] MEDS: GABAPENTIN 400 MG CAP PO SCH ×2 (08:11→20:16)
[2017-02-08] MEDS: PRESERVISION AREDS2 FORMULA EYE VIT 1 EACH PO SCH ×2 (08:12→17:55)
[2017-02-08] MEDS: Donepezil Hcl [Aricept] 23 MG PO SCH (08:12)
[2017-02-08] MEDS: ENOXAPARIN 40 MG/0.4 ML SYR SC SCH (08:12)
[2017-02-08] MEDS: ERYTHROMYCIN 0.5% 1 GM OPHT.OINT EACHEYE SCH (08:12)
[2017-02-08] MEDS: FLUoxetine 20 MG CAP PO SCH (08:12)
[2017-02-08] MEDS: metFORMIN HCL 500 MG TAB PO SCH ×2 (08:12→17:55)
[2017-02-08] MEDS: LISINOPRIL 10 MG TAB PO SCH (08:15)
[2017-02-08] MEDS: [UNRECOGNIZED DRUG - OTHER] PO PRN (11:52)
--- NOTE | 2017-02-08 12:11 | SOAPPROG ---
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 Initial FIM 63 on 02/06/17. Mod A bed mobility, min - modA of 2 for transfers, standing balance min to mod A. Physical therapy and occupational therapy to optimize mobility and activities of daily living. * Dysphagia and cognitive impairment. DD2 NTL texture with cueing to slow down.. Moderate dysarthria, worse with fatigue. Decreased exec fn, SOP, attn. Continue Speech and Language Pathology. * Secondary stroke prevention with blood pressure control, statin, and aspirin. * Permissive Hypertension. Keep the systolic blood pressure less than 180 mg for the first week, then less than 160 mg for the second week (starting 02/09/17) , and then less than 130/80 for the third week. Continue lisinopril and add subsequent medications as indicated. * Somnolence. Related to fluoxetine started today, or trazodone last night? Change trazodone from 50 mg QHS to 25 mg QHS. Chronic/stable conditions: * Recent cataract surgery and recent left blepharoplasty. Seen by compressor operator yesterday 02/07/17 and sutures removed. D/C erythromycin topical 02/08/17. Post-cataract eyefrops were discontinued 02/05/17 after discussion with compressor operator's office. * Intermittent diarrhea. Add Imodium on a p.r.n. basis, as has been his habit at home. * Depression? Prefers sertraline to fluoxetine so sertraline was restarted ( fluoxetine had been stared for neurorecovery). Asks for HS dosing as he thinks it is sedating. * Diabetes mellitus, type 2. Continue metformin and glipizide. * Dementia. Given his vascular findings on brain imaging, this is as likely a vascular dementia as it is Alzheimer's. Continue memantine and donepezil. * Cough with phlegm production, resolved. Leukocytosis on CBC 02/03/17 & but cough much improved and hypoxia mostly at night and not severe; CXR showed bronchitis; no treatment at present.. 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 Continue gabapentin. * Peripheral vascular disease. Will benefit from the same aggressive risk factor control, as will be in place for his cerebrovascular disease. * Prophylaxis. He was treated with subcutaneous heparin in the hospital. We will continue enoxaparin on a prophylactic dose until his mobility has improved to the point where his risk for DVT is reduced. Expect up to 4 - 6 weeks LOS; tentative discharge date 02/26/17. Reassess weekly. 02/08/17 12:07 Subjective: Noted to be sleepy by staff. No complaints. Denies f/c, cough/dyspnea, n/v/c/ d. Thinks he slept well last night. Objective: Vital Signs Temp Pulse Resp BP Pulse Ox 36.8 C 65 18 111/63 93 02/08/17 06:11 02/08/17 06:11 02/08/17 06:11 02/08/17 08:15 02/08/17 06:11 Laboratory Results 02/04/17 06:40 02/04/17 06:40 02/07/17 02/08/17 02/09/17 05:59 05:59 05:59 Intake Total 510 1308 240 Output Total 575 1075 Balance -65 233 240 Physical Exam - Physical Exam General Appearance: WD/WN, alert, no apparent distress Respiratory: normal breath sounds, No crackles, No rhonchi, No wheezing Cardiac/Chest: regular rate, rhythm, No edema Neuro/Psych: alert, normal mood/affect, oriented x 3, motor weakness (LUE & LLE) , other ICD10 Worksheet Patient Problems: Problems Problem Status Onset Chronic Disease Mgmt/Transitional Care Acute PNA (pneumonia) Acute PVD (peripheral vascular disease) Acute Tobacco abuse Acute
[2017-02-08] MEDS: ATORVASTATIN CALCIUM 40 MG TAB PO SCH (20:15)
[2017-02-08] MEDS: traZODone 50 MG TAB PO SCH (20:16)
[2017-02-09] MEDS: NYSTATIN SUSP 500000 UNIT/5 ML UDCUP PO SCH ×4 (05:34→20:25)
[2017-02-09] MEDS: metFORMIN HCL 500 MG TAB PO SCH ×2 (08:11→18:33)
[2017-02-09] MEDS: PRESERVISION AREDS2 FORMULA EYE VIT 1 EACH PO SCH ×2 (08:11→18:33)
[2017-02-09] MEDS: glipiZIDE 5 MG TAB PO SCH ×2 (08:11→18:33)
--- NOTE | 2017-02-09 08:12 | SOAPPROG ---
SOAP Progress Note Assessment/Plan: Assessment: 71 yo M who suffered a CVA R MCA on 01/23/17 with L weakness, dysphagia and dysarthria, and comorbid CAD, CHF, COPD, DM2: 02/08/2017 slept much better, fatigue and less of an issue this morning. Patient interested in continuing napping and energy drinks, counseled him to avoid napping and energy drinks in the late afternoon. Fatigue less likely related to fluoxetine, continue. Mildly hypertensive, systolics less than 160, continue to monitor and continue permissive hypertension. Mood better, no suicidal ideation. * Cerebrovascular accident, left basal ganglia with left-sided hemiparesis. Initial FIM63. Mod A bed mobility, min - modA of 2 for transfers, standing balance min to mod A. Physical therapy and occupational therapy to optimize mobility and activities of daily living. * Dysphagia and cognitive impairment. DD2 NTL texture with cueing to slow down. Moderate dysarthria, worse with fatigue. Decreased exec fn, SOP, attn. Continue Speech and Language Pathology. * Secondary stroke prevention with blood pressure control, statin, and aspirin. * Permissive Hypertension. Keep the systolic blood pressure less than 180 mg for the first week, then less than 160 mg for the second week (starting 02/09/17) , and then less than 130/80 for the third week. Continue lisinopril and add subsequent medications as indicated. * Depression: Has had some depression in the past, endorses low mood now without suicidal ideation. Switched from Zoloft to fluoxetine at his request. To clarify, it does not appear that he's been on fluoxetine in the past. * Fatigue: likely secondary to stroke and poor sleep, normal TSH, no anemia, no other clear etiologies at this point. Continue to follow, encourage good sleep hygiene. Chronic/stable conditions: * Recent cataract surgery and recent left blepharoplasty. The erythromycin ophthalmic ointment is to be continued on sutures for 1 week. His reports that he was due for suture removal, and we will assess the sutures and determine whether they are ready to come out. Regarding the cataracts, he is ofloxacin eye drops, and diclofenac eyedrops with no end date. It has been 3 weeks since his surgery. The tinner automatic was Dr. Lopez in [place]. * Intermittent diarrhea. Add Imodium on a p.r.n. basis, as has been his habit at home. * Diabetes mellitus, type 2. Continue metformin and glipizide. * Dementia. Given his vascular findings on brain imaging, this is as likely a vascular dementia as it is Alzheimer's. Continue memantine and donepezil. Dr. Jones notified * Cough with phlegm production, resolved. Leukocytosis on CBC 02/03/17 & but cough much improved and hypoxia mostly at night and not severe; CXR showed bronchitis; no treatment at present.. 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 Continue gabapentin. * Peripheral vascular disease. Will benefit from the same aggressive risk factor control, as will be in place for his cerebrovascular disease. * Prophylaxis. He was treated with subcutaneous heparin in the hospital. We will continue enoxaparin on a prophylactic dose until his mobility has improved to the point where his risk for DVT is reduced. Expect up to 4 - 6 weeks LOS; tentative discharge date 02/26/17. Reassess weekly. 02/07/17 10:11 02/09/17 08:08 Subjective: CC: fatigue No acute events overnight. Patient endorses that he slept better last night than previous nights, fatigue seems much better this morning. He was concerned that fatigue might be related to fluoxetine, notes that his mood is much better than prior days, no suicidal ideation. No new chest pain, shortness of breath, numbness, tingling, or weakness. When I counseled him on permissive hypertension and explained what was, he asked me "have you ever heard of permissive bitchiness?" Objective: Vital Signs Temp Pulse Resp BP Pulse Ox 36.8 C 58 L 18 147/79 H 90 L 02/09/17 05:41 02/09/17 05:41 02/09/17 05:41 02/09/17 05:41 02/09/17 05:41 Laboratory Results 02/04/17 06:40 02/04/17 06:40 02/08/17 02/09/17 02/10/17 05:59 05:59 05:59 Intake Total 1308 667 Output Total 3390 1350 Balance 233 -683 Physical Exam - Physical Exam General Appearance: WD/WN, alert, no apparent distress EENT: other (maria eugenia occular eccymoses, incisions healing well), No scleral icterus (R), No scleral icterus (L) Respiratory: No accessory muscle use, No decreased breath sounds Cardiac/Chest: normal peripheral pulses, regular rate, rhythm Skin: normal color, warm/dry, No cyanosis Extremities: non-tender, No swelling Neuro/Psych: alert, other (improved mood, still a bit low, congruent affect) ICD10 Worksheet Patient Problems: Problems Problem Status Onset Chronic Disease Mgmt/Transitional Care Acute PNA (pneumonia) Acute PVD (peripheral vascular disease) Acute Tobacco abuse Acute
[2017-02-09] MEDS: Donepezil Hcl [Aricept] 23 MG PO SCH (09:14)
[2017-02-09] MEDS: ASPIRIN 325 MG TAB PO SCH (09:14)
[2017-02-09] MEDS: BENEFIBER/NUTRISOURCE FIBER PKT 1 EACH PO SCH ×2 (09:14→20:25)
[2017-02-09] MEDS: NICOTINE 21 MG/24 HR PATCH TD SCH (09:14)
[2017-02-09] MEDS: GABAPENTIN 400 MG CAP PO SCH ×2 (09:14→20:24)
[2017-02-09] MEDS: VITAMIN B COMPLEX 1 EA CAP/TAB PO SCH (09:15)
[2017-02-09] MEDS: OMEGA-3 FATTY ACIDS 1,000 MG CAP PO SCH (09:15)
[2017-02-09] MEDS: MEMANTINE HCL 5 MG TAB PO SCH (09:15)
[2017-02-09] MEDS: FLUoxetine 20 MG CAP PO SCH (09:15)
[2017-02-09] MEDS: ENOXAPARIN 40 MG/0.4 ML SYR SC SCH (09:15)
[2017-02-09] MEDS: LISINOPRIL 10 MG TAB PO SCH (09:20)
[2017-02-09] MEDS: GLUCOSAMINE/CHONDROITIN CAP PO SCH (09:20)
[2017-02-09] MEDS: [UNRECOGNIZED DRUG - OTHER] PO PRN ×2 (11:45→15:26)
[2017-02-09] MEDS: ATORVASTATIN CALCIUM 40 MG TAB PO SCH (20:23)
[2017-02-09] MEDS: traZODone 50 MG TAB PO SCH (20:24)
[2017-02-10] MEDS: NYSTATIN SUSP 500000 UNIT/5 ML UDCUP PO SCH ×4 (06:32→20:36)
[2017-02-10] MEDS: glipiZIDE 5 MG TAB PO SCH ×2 (08:04→17:15)
[2017-02-10] MEDS: metFORMIN HCL 500 MG TAB PO SCH ×2 (08:04→17:15)
[2017-02-10] MEDS: PRESERVISION AREDS2 FORMULA EYE VIT 1 EACH PO SCH ×2 (08:04→17:15)
[2017-02-10] MEDS: OMEGA-3 FATTY ACIDS 1,000 MG CAP PO SCH (09:14)
[2017-02-10] MEDS: MEMANTINE HCL 5 MG TAB PO SCH (09:14)
[2017-02-10] MEDS: ASPIRIN 325 MG TAB PO SCH (09:14)
[2017-02-10] MEDS: GLUCOSAMINE/CHONDROITIN CAP PO SCH (09:14)
[2017-02-10] MEDS: GABAPENTIN 400 MG CAP PO SCH ×2 (09:14→20:36)
[2017-02-10] MEDS: FLUoxetine 20 MG CAP PO SCH (09:15)
[2017-02-10] MEDS: NICOTINE 21 MG/24 HR PATCH TD SCH (09:15)
[2017-02-10] MEDS: BENEFIBER/NUTRISOURCE FIBER PKT 1 EACH PO SCH ×2 (09:15→20:36)
[2017-02-10] MEDS: VITAMIN B COMPLEX 1 EA CAP/TAB PO SCH (09:15)
[2017-02-10] MEDS: LISINOPRIL 10 MG TAB PO SCH (09:16)
[2017-02-10] MEDS: ENOXAPARIN 40 MG/0.4 ML SYR SC SCH (09:17)
[2017-02-10] MEDS: Donepezil Hcl [Aricept] 23 MG PO SCH (09:18)
[2017-02-10] MEDS: [UNRECOGNIZED DRUG - OTHER] PO PRN (11:04)
--- NOTE | 2017-02-10 14:25 | SOAPPROG ---
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 Initial FIM 63 on 02/06/17. Mod A bed mobility, min - modA of 2 for transfers, standing balance min to mod A. Improving considerably; ambulating 02/10/17. Physical therapy and occupational therapy to optimize mobility and activities of daily living. * Dysphagia and cognitive impairment. DD2 NTL texture with cueing to slow down.. Moderate dysarthria, worse with fatigue. Decreased exec fn, SOP, attn. Continue Speech and Language Pathology. * Secondary stroke prevention with blood pressure control, statin, and aspirin. * Permissive Hypertension. Keep the systolic blood pressure less than 180 mg for the first week, then less than 160 mg for the second week (starting 02/09/17) , and then less than 130/80 for the third week. Continue lisinopril and add subsequent medications as indicated. * Somnolence. Related to fluoxetine started today, or trazodone last night? Change trazodone from 50 mg QHS to 25 mg QHS starting 02/08/17.. Chronic/stable conditions: * Recent cataract surgery and recent left blepharoplasty. Seen by attraction worker 02/07/17 and sutures removed. D/C'd erythromycin topical . Post-cataract eyedrops were discontinued 02/05/17 after discussion with attraction worker's office. * Intermittent diarrhea. Add Imodium on a p.r.n. basis, as has been his habit at home. * Depression? Fluoxetine had been stared for neurorecovery. * Diabetes mellitus, type 2. Continue metformin and glipizide. * Dementia. Given his vascular findings on brain imaging, this is as likely a vascular dementia as it is Alzheimer's. Continue memantine and donepezil. * Cough with phlegm production, resolved. Leukocytosis on CBC 02/03/17 & but cough much improved and hypoxia mostly at night and not severe; CXR showed bronchitis; no treatment at present. 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 Continue gabapentin. * Peripheral vascular disease. Will benefit from the same aggressive risk factor control, as will be in place for his cerebrovascular disease. * Prophylaxis. He was treated with subcutaneous heparin in the hospital. We will continue enoxaparin on a prophylactic dose until his mobility has improved to the point where his risk for DVT is reduced. Expect up to 4 - 6 weeks LOS; tentative discharge date 02/26/17. Reassess weekly. 02/10/17 14:20 Subjective: No complaints. Slept well. No cough/dyspnea, f/c. Objective: Vital Signs Temp Pulse Resp BP Pulse Ox 36.3 C 65 18 159/80 H 91 L 02/10/17 06:41 02/10/17 06:41 02/10/17 06:41 02/10/17 09:16 02/10/17 06:41 Laboratory Results 02/04/17 06:40 02/04/17 06:40 02/09/17 02/10/17 02/11/17 05:59 05:59 05:59 Intake Total 667 500 340 Output Total 1350 900 100 Balance -683 -400 240 Physical Exam - Physical Exam General Appearance: WD/WN, alert, no apparent distress Respiratory: normal breath sounds, No crackles, No rhonchi, No wheezing Cardiac/Chest: regular rate, rhythm, No edema Skin: normal color, warm/dry Neuro/Psych: alert, normal mood/affect, oriented x 3, abnormal gait (Walked 60' FWW with PT cueing for leg placement) ICD10 Worksheet Patient Problems: Problems Problem Status Onset Chronic Disease Mgmt/Transitional Care Acute PNA (pneumonia) Acute PVD (peripheral vascular disease) Acute Tobacco abuse Acute
[2017-02-10] MEDS: ATORVASTATIN CALCIUM 40 MG TAB PO SCH (20:36)
[2017-02-10] MEDS: traZODone 50 MG TAB PO SCH (20:36)
[2017-02-11] MEDS: NYSTATIN SUSP 500000 UNIT/5 ML UDCUP PO SCH ×4 (06:27→20:43)
[2017-02-11] MEDS: GABAPENTIN 400 MG CAP PO SCH ×2 (08:21→20:44)
[2017-02-11] MEDS: ASPIRIN 325 MG TAB PO SCH (08:22)
[2017-02-11] MEDS: LISINOPRIL 10 MG TAB PO SCH (08:22)
[2017-02-11] MEDS: OMEGA-3 FATTY ACIDS 1,000 MG CAP PO SCH (08:22)
[2017-02-11] MEDS: metFORMIN HCL 500 MG TAB PO SCH ×2 (08:22→17:03)
[2017-02-11] MEDS: glipiZIDE 5 MG TAB PO SCH ×2 (08:22→17:03)
[2017-02-11] MEDS: MEMANTINE HCL 5 MG TAB PO SCH (08:23)
[2017-02-11] MEDS: BENEFIBER/NUTRISOURCE FIBER PKT 1 EACH PO SCH ×2 (08:23→20:45)
[2017-02-11] MEDS: PRESERVISION AREDS2 FORMULA EYE VIT 1 EACH PO SCH ×2 (08:23→17:03)
[2017-02-11] MEDS: GLUCOSAMINE/CHONDROITIN CAP PO SCH (08:23)
[2017-02-11] MEDS: VITAMIN B COMPLEX 1 EA CAP/TAB PO SCH (08:23)
[2017-02-11] MEDS: FLUoxetine 20 MG CAP PO SCH (08:24)
[2017-02-11] MEDS: NICOTINE 21 MG/24 HR PATCH TD SCH (08:24)
[2017-02-11] MEDS: ENOXAPARIN 40 MG/0.4 ML SYR SC SCH (08:25)
[2017-02-11] MEDS: Donepezil Hcl [Aricept] 23 MG PO SCH (08:31)
[2017-02-11] MEDS: [UNRECOGNIZED DRUG - OTHER] PO PRN ×2 (09:31→14:19)
--- NOTE | 2017-02-11 12:02 | SOAPPROG ---
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 Initial FIM 63 on 02/06/17. Mod A bed mobility, min - modA of 2 for transfers, standing balance min to mod A. Improving considerably; ambulating 02/10/17. HAS 4/5 LEFT HIP FLEXION, QUADS, 4+/4 LEFT HS, TA. Physical therapy and occupational therapy to optimize mobility and activities of daily living. * Dysphagia and cognitive impairment. DD2 NTL texture with cueing to slow down.. Moderate dysarthria, worse with fatigue. Decreased exec fn, SOP, attn. Continue Speech and Language Pathology. * Secondary stroke prevention with blood pressure control, statin, and aspirin. * Permissive Hypertension. Keep the systolic blood pressure less than 180 mg for the first week, then less than 160 mg for the second week (starting 02/09/17) , and then less than 130/80 for the third week. Continue lisinopril and add subsequent medications as indicated. BP THIS AM 149/78 * Somnolence. Related to fluoxetine started today, or trazodone last night? Change trazodone from 50 mg QHS to 25 mg QHS starting 02/08/17.. Chronic/stable conditions: * Recent cataract surgery and recent left blepharoplasty. Seen by steel layout worker 02/07/17 and sutures removed. D/C'd erythromycin topical . Post-cataract eyedrops were discontinued 02/05/17 after discussion with steel layout worker's office. * Intermittent diarrhea. Add Imodium on a p.r.n. basis, as has been his habit at home. * Depression? Fluoxetine had been stared for neurorecovery. * Diabetes mellitus, type 2. Continue metformin and glipizide. * Dementia. Given his vascular findings on brain imaging, this is as likely a vascular dementia as it is Alzheimer's. Continue memantine and donepezil. * Cough with phlegm production, resolved. Leukocytosis on CBC 02/03/17 & but cough much improved and hypoxia mostly at night and not severe; CXR showed bronchitis; no treatment at present. 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 Continue gabapentin. * Peripheral vascular disease. Will benefit from the same aggressive risk factor control, as will be in place for his cerebrovascular disease. * Prophylaxis. He was treated with subcutaneous heparin in the hospital. We will continue enoxaparin on a prophylactic dose until his mobility has improved to the point where his risk for DVT is reduced. Plan: 02/11/17 11:58 Subjective: NO NEW C/O Objective: Vital Signs Temp Pulse Resp BP Pulse Ox 36.7 C 60 18 149/78 H 92 02/11/17 08:00 02/11/17 08:00 02/11/17 08:00 02/11/17 08:22 02/11/17 08:00 Laboratory Results 02/04/17 06:40 02/04/17 06:40 02/10/17 02/11/17 02/12/17 05:59 05:59 05:59 Intake Total 500 700 120 Output Total 900 1050 Balance -400 -350 120 Physical Exam - Physical Exam General Appearance: WD/WN, alert, no apparent distress Respiratory: chest non-tender, lungs clear, normal breath sounds Cardiac/Chest: No edema Abdomen: normal bowel sounds, non-tender, soft Skin: normal color, warm/dry Extremities: pedal edema, No normal range of motion (DECREASED ACTIVE LEFT KNEE EXTENSION SECONDARY TO WEAKNESS), No swelling, No Jose Eduardo's sign Neuro/Psych: motor weakness (LLE QUAD WEAKNESS) ICD10 Worksheet Patient Problems: Problems Problem Status Onset Chronic Disease Mgmt/Transitional Care Acute PNA (pneumonia) Acute PVD (peripheral vascular disease) Acute Tobacco abuse Acute
[2017-02-11] MEDS: traZODone 50 MG TAB PO SCH (20:43)
[2017-02-11] MEDS: ATORVASTATIN CALCIUM 40 MG TAB PO SCH (20:44)
[2017-02-12] MEDS: NYSTATIN SUSP 500000 UNIT/5 ML UDCUP PO SCH ×4 (06:30→20:36)
[2017-02-12] MEDS: PRESERVISION AREDS2 FORMULA EYE VIT 1 EACH PO SCH ×2 (09:26→16:44)
[2017-02-12] MEDS: glipiZIDE 5 MG TAB PO SCH ×2 (09:26→16:44)
[2017-02-12] MEDS: metFORMIN HCL 500 MG TAB PO SCH ×2 (09:26→16:44)
[2017-02-12] MEDS: ASPIRIN 325 MG TAB PO SCH (09:26)
[2017-02-12] MEDS: FLUoxetine 20 MG CAP PO SCH (09:27)
[2017-02-12] MEDS: ENOXAPARIN 40 MG/0.4 ML SYR SC SCH (09:27)
[2017-02-12] MEDS: Donepezil Hcl [Aricept] 23 MG PO SCH (09:27)
[2017-02-12] MEDS: NICOTINE 21 MG/24 HR PATCH TD SCH (09:28)
[2017-02-12] MEDS: LISINOPRIL 10 MG TAB PO SCH (09:28)
[2017-02-12] MEDS: GABAPENTIN 400 MG CAP PO SCH ×2 (09:28→20:34)
[2017-02-12] MEDS: MEMANTINE HCL 5 MG TAB PO SCH (09:28)
[2017-02-12] MEDS: BENEFIBER/NUTRISOURCE FIBER PKT 1 EACH PO SCH ×2 (09:28→20:36)
[2017-02-12] MEDS: VITAMIN B COMPLEX 1 EA CAP/TAB PO SCH (09:29)
[2017-02-12] MEDS: OMEGA-3 FATTY ACIDS 1,000 MG CAP PO SCH (09:29)
[2017-02-12] MEDS: [UNRECOGNIZED DRUG - OTHER] PO PRN ×2 (09:29→13:28)
[2017-02-12] MEDS: GLUCOSAMINE/CHONDROITIN CAP PO SCH (09:29)
--- NOTE | 2017-02-12 10:23 | SOAPPROG ---
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 Initial FIM 63 on 02/06/17. Mod A bed mobility, min - modA of 2 for transfers, standing balance min to mod A. Improving considerably; ambulating 02/10/17. HAS 4/5 LEFT HIP FLEXION, QUADS, 4+/4 LEFT HS, TA. Physical therapy and occupational therapy to optimize mobility and activities of daily living. * Dysphagia and cognitive impairment. DD2 NTL texture with cueing to slow down.. Moderate dysarthria, worse with fatigue. Decreased exec fn, SOP, attn. Continue Speech and Language Pathology. * Secondary stroke prevention with blood pressure control, statin, and aspirin. * Permissive Hypertension. Keep the systolic blood pressure less than 180 mg for the first week, then less than 160 mg for the second week (starting 02/09/17) , and then less than 130/80 for the third week. Continue lisinopril and add subsequent medications as indicated. BP THIS AM 145/80 * Somnolence. THIS HAS NOT BEEN AN ISSUE THIS AM. Related to fluoxetine started today, or trazodone last night? Chronic/stable conditions: * Recent cataract surgery and recent left blepharoplasty. Seen by metal dresser 02/07/17 and sutures removed. D/C'd erythromycin topical . Post-cataract eyedrops were discontinued 02/05/17 after discussion with metal dresser's office. * Intermittent diarrhea. Add Imodium on a p.r.n. basis, as has been his habit at home. * Depression? Fluoxetine had been stared for neurorecovery. * Diabetes mellitus, type 2. Continue metformin and glipizide. * Dementia. Given his vascular findings on brain imaging, this is as likely a vascular dementia as it is Alzheimer's. Continue memantine and donepezil. * Cough with phlegm production, resolved. Leukocytosis on CBC 02/03/17 & but cough much improved and hypoxia mostly at night and not severe; CXR showed bronchitis; no treatment at present. 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 Continue gabapentin. * Peripheral vascular disease. Will benefit from the same aggressive risk factor control, as will be in place for his cerebrovascular disease. * Prophylaxis. He was treated with subcutaneous heparin in the hospital. We will continue enoxaparin on a prophylactic dose until his mobility has improved to the point where his risk for DVT is reduced. 02/11/17 11:58 02/12/17 10:20 Subjective: No c/o per pt or staff Objective: Vital Signs Temp Pulse Resp BP Pulse Ox 36.8 C 60 16 145/80 H 91 L 02/12/17 07:50 02/12/17 07:50 02/12/17 07:50 02/12/17 09:28 02/12/17 07:50 Laboratory Results 02/04/17 06:40 02/04/17 06:40 02/11/17 02/12/17 02/13/17 05:59 05:59 05:59 Intake Total 700 1200 240 Output Total 1050 600 Balance -350 600 240 Physical Exam - Physical Exam General Appearance: WD/WN, alert, no apparent distress Respiratory: lungs clear, normal breath sounds Cardiac/Chest: No edema Abdomen: normal bowel sounds, non-tender, soft Skin: normal color, warm/dry Extremities: No swelling, No Jose Eduardo's sign Neuro/Psych: cognition abnormalities (4+/5 strength of both upper and lower extremities.) ICD10 Worksheet Patient Problems: Problems Problem Status Onset Chronic Disease Mgmt/Transitional Care Acute PNA (pneumonia) Acute PVD (peripheral vascular disease) Acute Tobacco abuse Acute
[2017-02-12] MEDS: traZODone 50 MG TAB PO SCH (20:34)
[2017-02-12] MEDS: ATORVASTATIN CALCIUM 40 MG TAB PO SCH (20:34)
[2017-02-13] MEDS: NYSTATIN SUSP 500000 UNIT/5 ML UDCUP PO SCH ×4 (06:18→20:35)
[2017-02-13] MEDS: [UNRECOGNIZED DRUG - OTHER] PO PRN ×2 (08:05→12:59)
[2017-02-13] MEDS: BENEFIBER/NUTRISOURCE FIBER PKT 1 EACH PO SCH ×2 (08:07→20:35)
[2017-02-13] MEDS: metFORMIN HCL 500 MG TAB PO SCH ×2 (08:08→17:29)
[2017-02-13] MEDS: VITAMIN B COMPLEX 1 EA CAP/TAB PO SCH (08:08)
[2017-02-13] MEDS: glipiZIDE 5 MG TAB PO SCH ×2 (08:08→16:54)
[2017-02-13] MEDS: ASPIRIN 325 MG TAB PO SCH (08:08)
[2017-02-13] MEDS: FLUoxetine 20 MG CAP PO SCH (08:08)
[2017-02-13] MEDS: PRESERVISION AREDS2 FORMULA EYE VIT 1 EACH PO SCH ×2 (08:08→17:29)
[2017-02-13] MEDS: LISINOPRIL 10 MG TAB PO SCH (08:08)
[2017-02-13] MEDS: MEMANTINE HCL 5 MG TAB PO SCH (08:08)
[2017-02-13] MEDS: GLUCOSAMINE/CHONDROITIN CAP PO SCH (08:09)
[2017-02-13] MEDS: ENOXAPARIN 40 MG/0.4 ML SYR SC SCH (08:09)
[2017-02-13] MEDS: GABAPENTIN 400 MG CAP PO SCH ×2 (08:09→20:35)
[2017-02-13] MEDS: NICOTINE 21 MG/24 HR PATCH TD SCH (08:09)
[2017-02-13] MEDS: Donepezil Hcl [Aricept] 23 MG PO SCH (08:09)
[2017-02-13] MEDS: OMEGA-3 FATTY ACIDS 1,000 MG CAP PO SCH (08:09)
[2017-02-13] MEDS: LOPERAMIDE HCL 2 MG CAP PO PRN (12:58)
--- NOTE | 2017-02-13 16:58 | SOAPPROG ---
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 Initial FIM 62 on 02/06/17, improved to 81 on 02/13/17. T'victoria CGA & cues for safety. Did 6 stairs 2 rails mod A. Walked 100 - 150' FWW min A.Had multiple LOB while dressing and poor self-correction. Balance, ambulation complicated by peripheral neuropathy and decreased proprioception. . Physical therapy and occupational therapy to optimize mobility and activities of daily living. * Dysphagia and cognitive impairment. DD2 NTL texture with cueing to slow down ; trial of regular, thin today 02/13/17.. Moderate dysarthria, worse with fatigue. Decreased exec fn, SOP, attn; making gains. Continue Speech and Language Pathology. * Secondary stroke prevention with blood pressure control, statin, and aspirin. * Permissive Hypertension. Keep the systolic blood pressure less than 180 mg for the first week, then less than 160 mg for the second week (starting 02/09/17) , and then less than 130/80 for the third week. Continue lisinopril; 10 mg QD. * Somnolence. Related to fluoxetine started today, or trazodone last night? Change trazodone from 50 mg QHS to 25 mg QHS starting 02/08/17. Improving. Chronic/stable conditions: * Recent cataract surgery and recent left blepharoplasty. Seen by service person 02/07/17 and sutures removed. D/C'd erythromycin topical . Post-cataract eyedrops were discontinued 02/05/17 after discussion with service person's office. * Intermittent diarrhea. Add Imodium on a p.r.n. basis, as has been his habit at home. * Depression? Fluoxetine had been stared for neurorecovery. * Diabetes mellitus, type 2. Continue metformin and glipizide. * Dementia. Given his vascular findings on brain imaging, this is as likely a vascular dementia as it is Alzheimer's. Continue memantine and donepezil. * Cough with phlegm production, resolved. Leukocytosis on CBC 02/03/17 & but cough much improved and hypoxia mostly at night and not severe; CXR showed bronchitis; no treatment at present. 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 Continue gabapentin. * Peripheral vascular disease. Will benefit from the same aggressive risk factor control, as will be in place for his cerebrovascular disease. * Prophylaxis. He was treated with subcutaneous heparin in the hospital. We will continue enoxaparin on a prophylactic dose until his mobility has improved to the point where his risk for DVT is reduced. Attended staffing, 15 min. D/W case mgmt, nursing, PT, OT, ANGULAR DEVELOPER, silica mixer operator, pharmacist. Continue tentative discharge date 02/26/17. Reassess weekly. 02/13/17 16:51 Subjective: No complaints, though he says he feels groggy in the morning. No f/c, cough/ dyspnea. Sleeps well. Bowels moving. Objective: Vital Signs Temp Pulse Resp BP Pulse Ox 36.4 C 61 16 127/68 H 91 L 02/13/17 06:28 02/13/17 06:28 02/13/17 06:28 02/13/17 08:08 02/13/17 06:28 Laboratory Results 02/04/17 06:40 02/04/17 06:40 02/12/17 02/13/17 02/14/17 05:59 05:59 05:59 Intake Total 1200 914 400 Output Total 600 625 200 Balance 600 289 200 - Time Spent With Patient Time Spent With Patient: Greater than 35 minutes floor time today, including more than 50% of time in coordination of care during staffing, and counseling patient. Physical Exam - Physical Exam General Appearance: WD/WN, alert, no apparent distress Respiratory: normal breath sounds, No crackles, No rhonchi, No wheezing Cardiac/Chest: regular rate, rhythm, No edema Skin: normal color, warm/dry Neuro/Psych: alert, normal mood/affect, oriented x 3 ICD10 Worksheet Patient Problems: Problems Problem Status Onset Chronic Disease Mgmt/Transitional Care Acute PNA (pneumonia) Acute PVD (peripheral vascular disease) Acute Tobacco abuse Acute
[2017-02-13] MEDS: ATORVASTATIN CALCIUM 40 MG TAB PO SCH (20:35)
[2017-02-13] MEDS: traZODone 50 MG TAB PO SCH (20:36)
[2017-02-14] MEDS: NYSTATIN SUSP 500000 UNIT/5 ML UDCUP PO SCH ×4 (06:09→21:06)
[2017-02-14 07:26] LABS: % IMMATURE GRANULYOCYTES 0.2 % (0.0-1.1); ABSOLUTE IMMATURE GRANULOCYTES 0.02 10^3/uL (0.00-0.10); ADD DIFF? NO; ADD MORPH? NO; ADD SCAN? NO; ATYPICAL LYMPHOCYTE FLAG 0 (0-99); FRAGMENT RBC FLAG 0 (0-99); HEMATOCRIT 51.5 % (40.0-51.0); LEFT SHIFT FLG 0 (0-99); LIPEMIA HEMOLYSIS FLAG 90 (0-99); MEAN CELL HEMOGLOBIN 32.1 pg (27.9-34.1); MEAN PLATELET VOLUME 10.3 fL (8.7-11.7); PLATELET CLUMPS FLAG 0 (0-99); PLATELET COUNT 217 10^3/uL (150-400); RED CELL DISTRIBUTION WIDTH 12.1 % (11.5-15.2)
[2017-02-14] MEDS: ASPIRIN 325 MG TAB PO SCH (08:19)
[2017-02-14] MEDS: glipiZIDE 5 MG TAB PO SCH ×2 (08:19→17:06)
[2017-02-14] MEDS: PRESERVISION AREDS2 FORMULA EYE VIT 1 EACH PO SCH ×2 (08:20→17:06)
[2017-02-14] MEDS: VITAMIN B COMPLEX 1 EA CAP/TAB PO SCH (08:20)
[2017-02-14] MEDS: GABAPENTIN 400 MG CAP PO SCH ×2 (08:20→21:06)
[2017-02-14] MEDS: MEMANTINE HCL 5 MG TAB PO SCH (08:20)
[2017-02-14] MEDS: FLUoxetine 20 MG CAP PO SCH ×2 (08:20→08:21)
[2017-02-14] MEDS: BENEFIBER/NUTRISOURCE FIBER PKT 1 EACH PO SCH ×2 (08:21→21:06)
[2017-02-14] MEDS: ENOXAPARIN 40 MG/0.4 ML SYR SC SCH (08:21)
[2017-02-14] MEDS: OMEGA-3 FATTY ACIDS 1,000 MG CAP PO SCH (08:21)
[2017-02-14] MEDS: GLUCOSAMINE/CHONDROITIN CAP PO SCH (08:21)
[2017-02-14] MEDS: NICOTINE 21 MG/24 HR PATCH TD SCH (08:22)
[2017-02-14] MEDS: LISINOPRIL 10 MG TAB PO SCH (08:22)
[2017-02-14] MEDS: metFORMIN HCL 500 MG TAB PO SCH ×2 (08:31→17:06)
[2017-02-14] MEDS: Donepezil Hcl [Aricept] 23 MG PO SCH (08:32)
[2017-02-14] MEDS: [UNRECOGNIZED DRUG - OTHER] PO PRN (09:56)
--- NOTE | 2017-02-14 15:39 | SOAPPROG ---
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 Initial FIM 62 on 02/06/17, improved to 81 on 02/13/17. T'victoria CGA & cues for safety. Did 6 stairs 2 rails mod A. Walked 100 - 150' FWW min A. Had multiple LOB while dressing and poor self-correction. Balance, ambulation complicated by peripheral neuropathy and decreased proprioception. . Physical therapy and occupational therapy to optimize mobility and activities of daily living. * Dysphagia and cognitive impairment. DD2 NTL texture with cueing to slow down ; trial of regular, thin 02/13/17; advanced to DD3 NTL. Moderate dysarthria, worse with fatigue. Decreased exec fn, SOP, attn; making gains. Continue Speech and Language Pathology. * Secondary stroke prevention with blood pressure control, statin, and aspirin. * Permissive Hypertension. Keep the systolic blood pressure less than 180 mg for the first week, then less than 160 mg for the second week (starting 02/09/17) , and then less than 130/80 for the third week (starting 02/16/17). Continue lisinopril; 10 mg QD. * Somnolence. Related to fluoxetine started today, or trazodone last night? Change trazodone from 50 mg QHS to 25 mg QHS starting 02/08/17. Improving. Chronic/stable conditions: * Recent cataract surgery and recent left blepharoplasty. Seen by pediatrician active practice 02/07/17 and sutures removed. D/C'd erythromycin topical . Post-cataract eyedrops were discontinued 02/05/17 after discussion with pediatrician active practice's office. * Intermittent diarrhea. Add Imodium on a p.r.n. basis, as has been his habit at home. * Depression? Fluoxetine had been stared for neurorecovery. * Diabetes mellitus, type 2. Continue metformin and glipizide. * Dementia. Given his vascular findings on brain imaging, this is as likely a vascular dementia as it is Alzheimer's. Continue memantine and donepezil. * Cough with phlegm production, resolved. Leukocytosis on CBC 02/03/17 & but cough much improved and hypoxia mostly at night and not severe; CXR showed bronchitis; no treatment at present. 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 Continue gabapentin. * Peripheral vascular disease. Will benefit from the same aggressive risk factor control, as will be in place for his cerebrovascular disease. * Prophylaxis. He was treated with subcutaneous heparin in the hospital. We will continue enoxaparin on a prophylactic dose until his mobility has improved to the point where his risk for DVT is reduced. Continue tentative discharge date 02/26/17. Reassess weekly. 02/14/17 15:36 Subjective: No complaints. Slept well. No change to chronic neuropathic leg pain. No cough/dyspnea, f/c. Objective: Vital Signs Temp Pulse Resp BP Pulse Ox 36.5 C 59 L 16 140/89 H 91 L 02/14/17 05:25 02/14/17 05:25 02/14/17 05:25 02/14/17 08:00 02/14/17 05:25 Laboratory Results 02/14/17 06:00 02/04/17 06:40 02/13/17 02/14/17 02/15/17 05:59 05:59 05:59 Intake Total 914 750 716 Output Total 625 200 Balance 289 550 716 Physical Exam - Physical Exam General Appearance: WD/WN, alert, no apparent distress Respiratory: normal breath sounds, No crackles, No rhonchi, No wheezing Cardiac/Chest: regular rate, rhythm, No edema Skin: normal color, warm/dry Neuro/Psych: alert, normal mood/affect ICD10 Worksheet Patient Problems: Problems Problem Status Onset Chronic Disease Mgmt/Transitional Care Acute PNA (pneumonia) Acute PVD (peripheral vascular disease) Acute Tobacco abuse Acute
[2017-02-14] MEDS: traZODone 50 MG TAB PO SCH (21:06)
[2017-02-14] MEDS: ATORVASTATIN CALCIUM 40 MG TAB PO SCH (21:06)
[2017-02-15] MEDS: NYSTATIN SUSP 500000 UNIT/5 ML UDCUP PO SCH ×4 (06:17→21:06)
[2017-02-15] MEDS: NICOTINE 21 MG/24 HR PATCH TD SCH (07:19)
[2017-02-15] MEDS: MEMANTINE HCL 5 MG TAB PO SCH (07:20)
[2017-02-15] MEDS: FLUoxetine 20 MG CAP PO SCH (07:21)
[2017-02-15] MEDS: OMEGA-3 FATTY ACIDS 1,000 MG CAP PO SCH (07:21)
[2017-02-15] MEDS: glipiZIDE 5 MG TAB PO SCH ×2 (07:21→17:43)
[2017-02-15] MEDS: PRESERVISION AREDS2 FORMULA EYE VIT 1 EACH PO SCH ×2 (07:21→17:43)
[2017-02-15] MEDS: VITAMIN B COMPLEX 1 EA CAP/TAB PO SCH (07:21)
[2017-02-15] MEDS: ASPIRIN 325 MG TAB PO SCH (07:21)
[2017-02-15] MEDS: GLUCOSAMINE/CHONDROITIN CAP PO SCH (07:21)
[2017-02-15] MEDS: BENEFIBER/NUTRISOURCE FIBER PKT 1 EACH PO SCH ×2 (07:22→21:05)
[2017-02-15] MEDS: ENOXAPARIN 40 MG/0.4 ML SYR SC SCH (07:22)
[2017-02-15] MEDS: metFORMIN HCL 500 MG TAB PO SCH ×2 (07:22→17:43)
[2017-02-15] MEDS: LISINOPRIL 10 MG TAB PO SCH (07:23)
[2017-02-15] MEDS: GABAPENTIN 400 MG CAP PO SCH ×2 (07:23→21:05)
[2017-02-15] MEDS: Donepezil Hcl [Aricept] 23 MG PO SCH (07:24)
--- NOTE | 2017-02-15 09:58 | SOAPPROG ---
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 Initial FIM 62 on 02/06/17, improved to 81 on 02/13/17. T'victoria CGA & cues for safety. Did 6 stairs 2 rails mod A. Walked 100 - 150' FWW min A. Had multiple LOB while dressing and poor self-correction. Balance, ambulation complicated by peripheral neuropathy and decreased proprioception. Continue physical therapy and occupational therapy to optimize mobility and activities of daily living. * Dysphagia and cognitive impairment. DD2 NTL texture with cueing to slow down ; trial of regular, thin 02/13/17; advanced to DD3 NTL. Moderate dysarthria, worse with fatigue. Decreased exec fn, SOP, attn; making gains. Continue Speech and Language Pathology. * Secondary stroke prevention with blood pressure control, statin, and aspirin. * Permissive Hypertension. Keep the systolic blood pressure less than 180 mg for the first week, then less than 160 mg for the second week (starting 02/09/17) , and then less than 130/80 for the third week (starting 02/16/17). Increase lisinopril from 10 mg QD to 20 mg QD starting 02/16/17. * Somnolence. Related to fluoxetine started today, or trazodone last night? Change trazodone from 50 mg QHS to 25 mg QHS starting 02/08/17. Improving. Chronic/stable conditions: * Recent cataract surgery and recent left blepharoplasty. Seen by cattle sticker 02/07/17 and sutures removed. D/C'd erythromycin topical . Post-cataract eyedrops were discontinued 02/05/17 after discussion with cattle sticker's office. * Intermittent diarrhea. Add Imodium on a p.r.n. basis, as has been his habit at home. * Depression? Fluoxetine had been stared for neurorecovery. * Diabetes mellitus, type 2. Continue metformin and glipizide. * Dementia. Given his vascular findings on brain imaging, this is as likely a vascular dementia as it is Alzheimer's. Continue memantine and donepezil. * Cough with phlegm production, resolved. Leukocytosis on CBC 02/03/17 & but cough much improved and hypoxia mostly at night and not severe; CXR showed bronchitis; no treatment at present. 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 Continue gabapentin. * Peripheral vascular disease. Will benefit from the same aggressive risk factor control, as will be in place for his cerebrovascular disease. * Prophylaxis. He was treated with subcutaneous heparin in the hospital. We will continue enoxaparin on a prophylactic dose until his mobility has improved to the point where his risk for DVT is reduced. Continue tentative discharge date 02/26/17. Reassess weekly. 02/15/17 09:56 Subjective: No complaints. Slept well. Not in pain. Objective: Vital Signs Temp Pulse Resp BP Pulse Ox 37.0 C 64 18 146/77 H 91 L 02/15/17 06:56 02/15/17 06:56 02/15/17 06:56 02/15/17 07:23 02/15/17 06:56 Laboratory Results 02/14/17 06:00 02/04/17 06:40 02/14/17 02/15/17 02/16/17 05:59 05:59 05:59 Intake Total 750 1192 Output Total 200 800 Balance 550 392 Physical Exam - Physical Exam General Appearance: WD/WN, alert, no apparent distress Respiratory: No respiratory distress, No accessory muscle use Skin: normal color, warm/dry Neuro/Psych: alert, normal mood/affect, oriented x 3, abnormal gait (Arised form seated independently with self-correcting LOB. Ambulates with FWW, CGA per PT, progressive lean to L.) ICD10 Worksheet Patient Problems: Problems Problem Status Onset Chronic Disease Mgmt/Transitional Care Acute PNA (pneumonia) Acute PVD (peripheral vascular disease) Acute Tobacco abuse Acute
[2017-02-15] MEDS: [UNRECOGNIZED DRUG - OTHER] PO PRN (10:29)
[2017-02-15] MEDS: traZODone 50 MG TAB PO SCH (21:05)
[2017-02-15] MEDS: ATORVASTATIN CALCIUM 40 MG TAB PO SCH (21:06)
[2017-02-15] MEDS: ACETAMINOPHEN 325 MG TAB PO PRN (21:12)
[2017-02-15] MEDS ORDERED: amLODIPine BESYLATE 5 MG TAB PO ONE (21:45)
[2017-02-16] MEDS: ACETAMINOPHEN 325 MG TAB PO PRN ×2 (06:24→20:59)
[2017-02-16] MEDS: NYSTATIN SUSP 500000 UNIT/5 ML UDCUP PO SCH ×4 (06:26→20:46)
--- NOTE | 2017-02-16 08:36 | SOAPPROG ---
SOAP Progress Note Assessment/Plan: Assessment: 71 yo M who suffered a CVA R MCA on 01/23/17 with L weakness, dysphagia and dysarthria, and comorbid CAD, CHF, COPD, DM2: 02/16/2017 Pain in left ankle, intermittent, likely related to neural recovery. No particular exacerbating or alleviating activities, no indication for imaging. Will treat symptomatically with capsaicin cream and monitor for further recovery. Patient does not have any signs or symptoms of hypertensive urgency, lisinopril was increased this morning. The patient notes he was also on metoprolol XL 50 mg daily before his stroke, will discuss with Dr. Mcqueen before restarting. * Cerebrovascular accident, left basal ganglia with left-sided hemiparesis. Initial FIM 62 on 02/06/17, improved to 81 on 02/13/17. T'victoria CGA & cues for safety. Did 6 stairs 2 rails mod A. Walked 100 - 150' FWW min A. Had multiple LOB while dressing and poor self-correction. Balance, ambulation complicated by peripheral neuropathy and decreased proprioception. Continue physical therapy and occupational therapy to optimize mobility and activities of daily living. * Left ankle pain, intermittent: Likely related to neural recovery. Capsaicin cream tid for now, monitor. Avoiding [place] due to salicylates. * Dysphagia and cognitive impairment. DD2 NTL texture with cueing to slow down ; trial of regular, thin 02/13/17; advanced to DD3 NTL. Moderate dysarthria, worse with fatigue. Decreased exec fn, SOP, attn; making gains. Continue Speech and Language Pathology. * Secondary stroke prevention with blood pressure control, statin, and aspirin. * Permissive Hypertension. Keep the systolic blood pressure less than 180 mg for the first week, then less than 160 mg for the second week (starting 02/09/17) , and then less than 130/80 for the third week (starting 02/16/17). Increase lisinopril from 10 mg QD to 20 mg QD starting 02/16/17. Consider restarting metoprolol today. * Somnolence. Related to fluoxetine started today, or trazodone last night? Change trazodone from 50 mg QHS to 25 mg QHS starting 02/08/17. Improving. Chronic/stable conditions: * Recent cataract surgery and recent left blepharoplasty. Seen by accounting methods analyst 02/07/17 and sutures removed. D/C'd erythromycin topical . Post-cataract eyedrops were discontinued 02/05/17 after discussion with accounting methods analyst's office. * Intermittent diarrhea. Add Imodium on a p.r.n. basis, as has been his habit at home. * Depression? Fluoxetine had been stared for neurorecovery. * Diabetes mellitus, type 2. Continue metformin and glipizide. * Dementia. Given his vascular findings on brain imaging, this is as likely a vascular dementia as it is Alzheimer's. Continue memantine and donepezil. * Cough with phlegm production, resolved. Leukocytosis on CBC 02/03/17 & but cough much improved and hypoxia mostly at night and not severe; CXR showed bronchitis; no treatment at present. 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 Continue gabapentin. * Peripheral vascular disease. Will benefit from the same aggressive risk factor control, as will be in place for his cerebrovascular disease. * Prophylaxis. He was treated with subcutaneous heparin in the hospital. We will continue enoxaparin on a prophylactic dose until his mobility has improved to the point where his risk for DVT is reduced. Continue tentative discharge date 02/26/17. Reassess weekly. 02/07/17 10:11 02/09/17 08:08 02/16/17 08:35 02/16/17 09:50 Subjective: CC: hypertension No acute events overnight. Patient received a one-time dose of amlodipine last night for hypertension. He notes that he was previously on metoprolol 50 mg, XL , daily. He does not feel that lisinopril at 20 mg will control his blood pressure. Additionally he notes he's had the onset of left-sided foot pain in the anterior aspect of his left ankle, started this morning, intermittent, shooting pain, never felt it before. Denies any trauma related to it, nothing seems to bring it on, it passes as quickly as it starts. He is interested in a topical remedy such as capsaicin or BenGay. He also associates like spasm as a result of the pain. Denies any new shortness of breath, chest pain, numbness, tingling, or weakness. Objective: Vital Signs Temp Pulse Resp BP Pulse Ox 37.2 C 64 16 164/76 H 91 L 02/15/17 19:30 07/06/17 06:39 02/16/17 06:39 02/16/17 06:39 02/16/17 06:39 Laboratory Results 02/14/17 06:00 02/04/17 06:40 02/15/17 02/16/17 02/17/17 05:59 05:59 05:59 Intake Total 1192 600 Output Total 800 600 Balance 392 0 Physical Exam - Physical Exam General Appearance: WD/WN, alert, no apparent distress Respiratory: normal breath sounds, No respiratory distress, No accessory muscle use Cardiac/Chest: normal peripheral pulses, regular rate, rhythm, No edema Skin: normal color, warm/dry, No cyanosis Extremities: other ( Left ankle without tenderness to palpation, no redness, no swelling, no pain on ankle dorsiflexion, plantarflexion, inversion, eversion, or torsional manipulation of the joint.) Neuro/Psych: alert, normal mood/affect, motor weakness, sensory deficit (left) ICD10 Worksheet Patient Problems: Problems Problem Status Onset Chronic Disease Mgmt/Transitional Care Acute PNA (pneumonia) Acute PVD (peripheral vascular disease) Acute Tobacco abuse Acute
[2017-02-16] MEDS: NICOTINE 21 MG/24 HR PATCH TD SCH (08:41)
[2017-02-16] MEDS: BENEFIBER/NUTRISOURCE FIBER PKT 1 EACH PO SCH ×2 (08:41→20:46)
[2017-02-16] MEDS: GABAPENTIN 400 MG CAP PO SCH ×2 (08:42→20:44)
[2017-02-16] MEDS: VITAMIN B COMPLEX 1 EA CAP/TAB PO SCH (08:42)
[2017-02-16] MEDS: ASPIRIN 325 MG TAB PO SCH (08:42)
[2017-02-16] MEDS: GLUCOSAMINE/CHONDROITIN CAP PO SCH (08:42)
[2017-02-16] MEDS: metFORMIN HCL 500 MG TAB PO SCH ×2 (08:42→17:00)
[2017-02-16] MEDS: OMEGA-3 FATTY ACIDS 1,000 MG CAP PO SCH (08:42)
[2017-02-16] MEDS: glipiZIDE 5 MG TAB PO SCH ×2 (08:42→17:00)
[2017-02-16] MEDS: FLUoxetine 20 MG CAP PO SCH (08:43)
[2017-02-16] MEDS: ENOXAPARIN 40 MG/0.4 ML SYR SC SCH (08:44)
[2017-02-16] MEDS: Donepezil Hcl [Aricept] 23 MG PO SCH (08:44)
[2017-02-16] MEDS: PRESERVISION AREDS2 FORMULA EYE VIT 1 EACH PO SCH ×2 (08:44→17:00)
[2017-02-16] MEDS: MEMANTINE HCL 5 MG TAB PO SCH (08:44)
[2017-02-16] MEDS: LISINOPRIL 20 MG TAB PO SCH (09:21)
[2017-02-16] MEDS ORDERED: METOPROLOL SUCCINATE XR 50 MG TAB PO SCH (10:45)
[2017-02-16] MEDS: [UNRECOGNIZED DRUG - OTHER] PO PRN ×2 (10:50→14:44)
[2017-02-16] MEDS: CAPSAICIN 0.025% CREAM TP SCH ×2 (16:14→20:46)
[2017-02-16] MEDS ORDERED: LISINOPRIL 10 MG TAB PO SCH (16:56)
[2017-02-16] MEDS: ATORVASTATIN CALCIUM 40 MG TAB PO SCH (20:44)
[2017-02-16] MEDS: traZODone 50 MG TAB PO SCH (20:45)
[2017-02-17] MEDS: NYSTATIN SUSP 500000 UNIT/5 ML UDCUP PO SCH ×4 (05:29→21:36)
[2017-02-17] MEDS: VITAMIN B COMPLEX 1 EA CAP/TAB PO SCH (08:27)
[2017-02-17] MEDS: ENOXAPARIN 40 MG/0.4 ML SYR SC SCH (08:27)
[2017-02-17] MEDS: ASPIRIN 325 MG TAB PO SCH (08:27)
[2017-02-17] MEDS: glipiZIDE 5 MG TAB PO SCH ×2 (08:27→17:41)
[2017-02-17] MEDS: MEMANTINE HCL 5 MG TAB PO SCH (08:27)
[2017-02-17] MEDS: BENEFIBER/NUTRISOURCE FIBER PKT 1 EACH PO SCH ×2 (08:28→21:35)
[2017-02-17] MEDS: OMEGA-3 FATTY ACIDS 1,000 MG CAP PO SCH (08:29)
[2017-02-17] MEDS: FLUoxetine 20 MG CAP PO SCH (08:29)
[2017-02-17] MEDS: GABAPENTIN 400 MG CAP PO SCH ×2 (08:29→21:34)
[2017-02-17] MEDS: GLUCOSAMINE/CHONDROITIN CAP PO SCH (08:29)
[2017-02-17] MEDS: LISINOPRIL 20 MG TAB PO SCH (08:29)
[2017-02-17] MEDS: metFORMIN HCL 500 MG TAB PO SCH ×2 (08:29→17:41)
[2017-02-17] MEDS: Donepezil Hcl [Aricept] 23 MG PO SCH (08:29)
[2017-02-17] MEDS: PRESERVISION AREDS2 FORMULA EYE VIT 1 EACH PO SCH ×2 (08:29→17:41)
[2017-02-17] MEDS: CAPSAICIN 0.025% CREAM TP SCH ×3 (08:29→21:42)
[2017-02-17] MEDS: NICOTINE 21 MG/24 HR PATCH TD SCH (08:30)
[2017-02-17] MEDS ORDERED: METOPROLOL SUCCINATE XR 25 MG TAB PO ONE (09:00)
[2017-02-17] MEDS ORDERED: METOPROLOL SUCCINATE XR 50 MG TAB PO SCH (10:20)
--- NOTE | 2017-02-17 12:43 | SOAPPROG ---
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 Initial FIM 62 on 02/06/17, improved to 81 on 02/13/17. T'victoria CGA & cues for safety. Did 6 stairs 2 rails mod A. Walked 100 - 150' FWW min A. Had multiple LOB while dressing and poor self-correction. Balance, ambulation complicated by peripheral neuropathy and decreased proprioception. Continue physical therapy and occupational therapy to optimize mobility and activities of daily living. * Dysphagia and cognitive impairment. DD2 NTL texture with cueing to slow down ; trial of regular, thin 02/13/17; advanced to DD3 NTL. Moderate dysarthria, worse with fatigue. Decreased exec fn, SOP, attn; making gains. Continue Speech and Language Pathology. * Secondary stroke prevention with blood pressure control, statin, and aspirin. * Permissive Hypertension. Keep the systolic blood pressure less than 180 mg for the first week, then less than 160 mg for the second week (starting 02/09/17) , and then less than 130/80 for the third week (starting 02/16/17). Increase lisinopril from 10 mg QD to 20 mg QD starting 02/16/17. Metoprolol restarted at 50 mg QD on 02/16/17; will reduce to 25 mg QD due to bradycardia. Continue to monitor. * Somnolence. Change trazodone from 50 mg QHS to 25 mg QHS starting 02/08/17. Improving. Chronic/stable conditions: * Recent cataract surgery and recent left blepharoplasty. Seen by care director rn 02/07/17 and sutures removed. D/C'd erythromycin topical . Post-cataract eyedrops were discontinued 02/05/17 after discussion with care director rn's office. * Intermittent diarrhea. Add Imodium on a p.r.n. basis, as has been his habit at home. * Depression? Fluoxetine had been started for neurorecovery. * Diabetes mellitus, type 2. Continue metformin and glipizide. * Dementia. Given his vascular findings on brain imaging, this is as likely a vascular dementia as it is Alzheimer's. Continue memantine and donepezil. * Cough with phlegm production, resolved. Leukocytosis on CBC 02/03/17 & but cough much improved and hypoxia mostly at night and not severe; CXR showed bronchitis; no treatment at present. 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 Continue gabapentin. * Peripheral vascular disease. Will benefit from the same aggressive risk factor control, as will be in place for his cerebrovascular disease. * Prophylaxis. He was treated with subcutaneous heparin in the hospital. We will continue enoxaparin on a prophylactic dose until his mobility has improved to the point where his risk for DVT is reduced. Continue tentative discharge date 02/26/17. Reassess weekly. 02/17/17 12:41 Subjective: No complaints. Slept well. Denies f/c, cough/dyspnea. Nurse noted bradycardia this morning but he does not note symptoms. Objective: Vital Signs Temp Pulse Resp BP Pulse Ox 36.6 C 51 L 16 115/56 L 90 L 02/17/17 05:32 02/17/17 08:53 02/17/17 05:32 02/17/17 08:53 02/17/17 05:32 Laboratory Results 02/14/17 06:00 02/04/17 06:40 02/16/17 02/17/17 02/18/17 05:59 05:59 05:59 Intake Total 600 584 120 Output Total 600 Balance 0 584 120 Physical Exam - Physical Exam General Appearance: WD/WN, alert, no apparent distress Respiratory: normal breath sounds, No crackles, No rhonchi, No wheezing Cardiac/Chest: regular rate, rhythm, bradycardia Skin: normal color, warm/dry Neuro/Psych: alert, normal mood/affect ICD10 Worksheet Patient Problems: Problems Problem Status Onset Chronic Disease Mgmt/Transitional Care Acute PNA (pneumonia) Acute PVD (peripheral vascular disease) Acute Tobacco abuse Acute
[2017-02-17] MEDS ORDERED: ALBUTEROL 60 PUFFS/8 GM MDI IH PRN (14:23)
[2017-02-17] MEDS ORDERED: FLUTICASONE NASAL 120 SPRAYS/16 GM MDI EACHNARE SCH (21:00)
[2017-02-17] MEDS ORDERED: amLODIPine BESYLATE 5 MG TAB PO ONE (21:30)
[2017-02-17] MEDS: traZODone 50 MG TAB PO SCH (21:37)
[2017-02-17] MEDS: ATORVASTATIN CALCIUM 40 MG TAB PO SCH (21:37)
[2017-02-17] MEDS: FLUTICASONE NASAL 120 SPRAYS/16 GM MDI EACHNARE SCH (21:38)
[2017-02-17] MEDS: LOPERAMIDE HCL 2 MG CAP PO PRN (22:41)
[2017-02-18] MEDS: NYSTATIN SUSP 500000 UNIT/5 ML UDCUP PO SCH ×4 (06:08→21:13)
[2017-02-18] MEDS: NICOTINE 21 MG/24 HR PATCH TD SCH (07:59)
[2017-02-18] MEDS: BENEFIBER/NUTRISOURCE FIBER PKT 1 EACH PO SCH ×2 (07:59→21:14)
[2017-02-18] MEDS: GLUCOSAMINE/CHONDROITIN CAP PO SCH (08:00)
[2017-02-18] MEDS: GABAPENTIN 400 MG CAP PO SCH ×2 (08:00→21:13)
[2017-02-18] MEDS: MEMANTINE HCL 5 MG TAB PO SCH (08:02)
[2017-02-18] MEDS: metFORMIN HCL 500 MG TAB PO SCH ×2 (08:02→17:15)
[2017-02-18] MEDS: glipiZIDE 5 MG TAB PO SCH ×2 (08:02→17:15)
[2017-02-18] MEDS: OMEGA-3 FATTY ACIDS 1,000 MG CAP PO SCH (08:02)
[2017-02-18] MEDS: ASPIRIN 325 MG TAB PO SCH (08:02)
[2017-02-18] MEDS: VITAMIN B COMPLEX 1 EA CAP/TAB PO SCH (08:02)
[2017-02-18] MEDS: FLUoxetine 20 MG CAP PO SCH (08:03)
[2017-02-18] MEDS: PRESERVISION AREDS2 FORMULA EYE VIT 1 EACH PO SCH ×2 (08:03→17:15)
[2017-02-18] MEDS: LISINOPRIL 20 MG TAB PO SCH (08:43)
[2017-02-18] MEDS: Donepezil Hcl [Aricept] 23 MG PO SCH (08:44)
[2017-02-18] MEDS: ENOXAPARIN 40 MG/0.4 ML SYR SC SCH (08:44)
[2017-02-18] MEDS ORDERED: CAPSAICIN 0.025% CREAM TP PRN (08:52)
[2017-02-18] MEDS: METOPROLOL SUCCINATE XR 25 MG TAB PO SCH (08:53)
[2017-02-18] MEDS: [UNRECOGNIZED DRUG - OTHER] PO PRN ×2 (10:04→13:54)
[2017-02-18] MEDS ORDERED: LISINOPRIL 20 MG TAB PO ONE (11:15)
--- NOTE | 2017-02-18 11:48 | SOAPPROG ---
SOAP Progress Note Assessment/Plan: Assessment: 71 yo M who suffered a CVA R MCA on 01/23/17 with L weakness, dysphagia and dysarthria, and comorbid CAD, CHF, COPD, DM2: Today's update periodically hypertensive, responds well to 5 mg amlodipine dose. Increasing lisinopril from 20 mg daily to 40 mg daily, holding metoprolol 25 mg XL today, but will restart tomorrow. He notes that he has a history of relatively low heart rate at baseline when he was on the metoprolol. Will also check a chem seven in the morning with increase of lisinopril today. Consider adding amlodipine 2.5 mg two regimen if greater control is needed. Unclear if he 's been on hydrochlorothiazide or other diuretic in the past. * Cerebrovascular accident, left basal ganglia with left-sided hemiparesis. Initial FIM 62 on 02/06/17, improved to 81 on 02/13/17. T'victoria CGA & cues for safety. Did 6 stairs 2 rails mod A. Walked 100 - 150' FWW min A. Had multiple LOB while dressing and poor self-correction. Balance, ambulation complicated by peripheral neuropathy and decreased proprioception. Continue physical therapy and occupational therapy to optimize mobility and activities of daily living. * Dysphagia and cognitive impairment. DD2 NTL texture with cueing to slow down ; trial of regular, thin 02/13/17; advanced to DD3 NTL. Moderate dysarthria, worse with fatigue. Decreased exec fn, SOP, attn; making gains. Continue Speech and Language Pathology. * Secondary stroke prevention with blood pressure control, statin, and aspirin. * Permissive Hypertension. Keep the systolic blood pressure less than 180 mg for the first week, then less than 160 mg for the second week (starting 02/09/17) , and then less than 130/80 for the third week (starting 02/16/17). Increase lisinopril from 10 mg QD to 20 mg QD starting 02/16/17. Metoprolol restarted at 50 mg QD on 02/16/17; Reduced to 25 mg daily, and then held for low heart rate. Increase lisinopril on 02/18/2017 to 40 mg daily, plan to restart metoprolol at 25 mg XL morning of 02/19. Responds well to amlodipine 5 mg PO PRN for elevated blood pressure, consider adding amlodipine as a scheduled agent. Chronic/stable conditions: * Somnolence. Change trazodone from 50 mg QHS to 25 mg QHS starting 02/08/17. Improving. * Recent cataract surgery and recent left blepharoplasty. Seen by seamstress fitter 02/07/17 and sutures removed. D/C'd erythromycin topical . Post-cataract eyedrops were discontinued 02/05/17 after discussion with seamstress fitter's office. * Intermittent diarrhea. Add Imodium on a p.r.n. basis, as has been his habit at home. * Depression? Fluoxetine had been started for neurorecovery. No SI * Diabetes mellitus, type 2. Continue metformin and glipizide. * Dementia. Given his vascular findings on brain imaging, this is as likely a vascular dementia as it is Alzheimer's. Continue memantine and donepezil. * Cough with phlegm production, resolved. Leukocytosis on CBC 02/03/17 & but cough much improved and hypoxia mostly at night and not severe; CXR showed bronchitis; no treatment at present. 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 Continue gabapentin. * Peripheral vascular disease. Will benefit from the same aggressive risk factor control, as will be in place for his cerebrovascular disease. * Prophylaxis. He was treated with subcutaneous heparin in the hospital. We will continue enoxaparin on a prophylactic dose until his mobility has improved to the point where his risk for DVT is reduced. Continue tentative discharge date 02/26/17. Reassess weekly. 02/07/17 10:11 02/09/17 08:08 02/16/17 08:35 02/16/17 09:50 02/18/17 11:44 Subjective: CC: HTN No acute events overnight. Patient did have elevated blood pressure and was given amlodipine 5 mg times one. Also, this morning metoprolol was held because of bradycardia in the 50s. Patient reports that this heart rate is typical for him when the medication was prescribed by his supervisor blood donor recruiters. He denies any vision changes, shortness of breath, chest pain, new numbness, tingling, or weakness no cough. Not sure if he is been on hydrochlorothiazide in the past, but he does not think so. Objective: Vital Signs Temp Pulse Resp BP Pulse Ox 36.7 C 55 L 16 141/62 H 93 02/18/17 08:00 02/18/17 09:35 02/18/17 09:35 02/18/17 09:35 02/18/17 09:35 Laboratory Results 02/14/17 06:00 02/04/17 06:40 02/17/17 02/18/17 02/19/17 05:59 05:59 05:59 Intake Total 584 512 472 Output Total 550 Balance 584 201 472 Physical Exam - Physical Exam General Appearance: WD/WN, alert, no apparent distress Respiratory: lungs clear, normal breath sounds, No respiratory distress, No accessory muscle use Cardiac/Chest: normal peripheral pulses, regular rate, rhythm, No edema, No extra beats, No irregularly irregular Abdomen: non-tender, soft Skin: normal color, warm/dry, No cyanosis Lymphatic: no adenopathy Extremities: No pedal edema, No swelling Neuro/Psych: alert, normal mood/affect ICD10 Worksheet Patient Problems: Problems Problem Status Onset Chronic Disease Mgmt/Transitional Care Acute PNA (pneumonia) Acute PVD (peripheral vascular disease) Acute Tobacco abuse Acute
[2017-02-18] MEDS: traZODone 50 MG TAB PO SCH (21:13)
[2017-02-18] MEDS: ATORVASTATIN CALCIUM 40 MG TAB PO SCH (21:20)
[2017-02-18] MEDS: FLUTICASONE NASAL 120 SPRAYS/16 GM MDI EACHNARE SCH (21:24)
[2017-02-19] MEDS: NYSTATIN SUSP 500000 UNIT/5 ML UDCUP PO SCH ×4 (05:20→20:41)
[2017-02-19] MEDS: Donepezil Hcl [Aricept] 23 MG PO SCH (08:14)
[2017-02-19] MEDS: GABAPENTIN 400 MG CAP PO SCH ×2 (08:14→20:39)
[2017-02-19] MEDS: GLUCOSAMINE/CHONDROITIN CAP PO SCH (08:14)
[2017-02-19] MEDS: FLUoxetine 20 MG CAP PO SCH (08:14)
[2017-02-19] MEDS: LISINOPRIL 20 MG TAB PO SCH (08:14)
[2017-02-19] MEDS: ASPIRIN 325 MG TAB PO SCH (08:14)
[2017-02-19] MEDS: PRESERVISION AREDS2 FORMULA EYE VIT 1 EACH PO SCH ×2 (08:15→17:05)
[2017-02-19] MEDS: metFORMIN HCL 500 MG TAB PO SCH ×2 (08:15→17:05)
[2017-02-19] MEDS: glipiZIDE 5 MG TAB PO SCH ×2 (08:15→17:05)
[2017-02-19] MEDS: NICOTINE 21 MG/24 HR PATCH TD SCH (08:15)
[2017-02-19] MEDS: METOPROLOL SUCCINATE XR 25 MG TAB PO SCH (08:15)
[2017-02-19] MEDS: OMEGA-3 FATTY ACIDS 1,000 MG CAP PO SCH (08:15)
[2017-02-19] MEDS: ENOXAPARIN 40 MG/0.4 ML SYR SC SCH (08:16)
[2017-02-19] MEDS: BENEFIBER/NUTRISOURCE FIBER PKT 1 EACH PO SCH ×2 (08:16→20:41)
[2017-02-19] MEDS: VITAMIN B COMPLEX 1 EA CAP/TAB PO SCH (08:16)
[2017-02-19] MEDS: MEMANTINE HCL 5 MG TAB PO SCH (08:16)
[2017-02-19 08:55] LABS: ANION GAP 14 mEq/L (8-16); CALCIUM 9.3 mg/dL (8.5-10.4); CARBON DIOXIDE 25 mEq/l (22-31); CHLORIDE 107 mEq/L (97-110); CREATININE 1.1 mg/dL (0.7-1.3); GLOMERULAR FILTRATION RATE > 60; GLUCOSE 80 mg/dL (70-100); POTASSIUM 3.9 mEq/L (3.5-5.2); SODIUM 146 mEq/L (134-144)
[2017-02-19] MEDS: [UNRECOGNIZED DRUG - OTHER] PO PRN ×2 (10:00→14:11)
--- NOTE | 2017-02-19 10:23 | SOAPPROG ---
SOAP Progress Note Assessment/Plan: Assessment: 71 yo M who suffered a CVA R MCA on 01/23/17 with L weakness, dysphagia and dysarthria, and comorbid CAD, CHF, COPD, DM2: Today's update Hypertension improved with increase in lisinopril. Chem seven demonstrates slightly high sodium, otherwise normal. Patient has not required additional amlodipine over the last 24 hours. Restarting metoprolol at 25 mg XL PO Q day starting today. He notes that his pulse has generally been low. * Cerebrovascular accident, left basal ganglia with left-sided hemiparesis. Initial FIM 62 on 02/06/17, improved to 81 on 02/13/17. T'victoria CGA & cues for safety. Did 6 stairs 2 rails mod A. Walked 100 - 150' FWW min A. Had multiple LOB while dressing and poor self-correction. Balance, ambulation complicated by peripheral neuropathy and decreased proprioception. Continue physical therapy and occupational therapy to optimize mobility and activities of daily living. * Dysphagia and cognitive impairment. DD2 NTL texture with cueing to slow down ; trial of regular, thin 02/13/17; advanced to DD3 NTL. Moderate dysarthria, worse with fatigue. Decreased exec fn, SOP, attn; making gains. Continue Speech and Language Pathology. * Secondary stroke prevention with blood pressure control, statin, and aspirin. * Hypertension. Ended permissive hypertension, currently on lisinopril 40 mg daily and restarting metoprolol XL 25 mg PO Q day, okay to give with pulse greater than 50. Plan to add amlodipine as another agent if needed. Chronic/stable conditions: * Somnolence. Change trazodone from 50 mg QHS to 25 mg QHS starting 02/08/17. Improved * Recent cataract surgery and recent left blepharoplasty. Seen by semiconductor lab technician 02/07/17 and sutures removed. D/C'd erythromycin topical . Post-cataract eyedrops were discontinued 02/05/17 after discussion with semiconductor lab technician's office. * Intermittent diarrhea. Add Imodium on a p.r.n. basis, as has been his habit at home. * Depression? Fluoxetine had been started for neurorecovery. No SI * Diabetes mellitus, type 2. Continue metformin and glipizide. * Dementia. Given his vascular findings on brain imaging, this is as likely a vascular dementia as it is Alzheimer's. Continue memantine and donepezil. * Cough with phlegm production, resolved. Leukocytosis on CBC 02/03/17 & but cough much improved and hypoxia mostly at night and not severe; CXR showed bronchitis; no treatment at present. 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 Continue gabapentin. * Peripheral vascular disease. Will benefit from the same aggressive risk factor control, as will be in place for his cerebrovascular disease. * Prophylaxis. He was treated with subcutaneous heparin in the hospital. We will continue enoxaparin on a prophylactic dose until his mobility has improved to the point where his risk for DVT is reduced. Continue tentative discharge date 02/26/17. Reassess weekly. 02/07/17 10:11 02/09/17 08:08 02/16/17 08:35 02/16/17 09:50 02/18/17 11:44 02/19/17 10:20 Subjective: CC: htn No acute events overnight. Patient endorsed that he slept well, participating well and therapies. Has not needed any additional amlodipine for breakthrough hypertension. He reports that his pulse is always low, and was on metoprolol regardless. No new shortness of breath or chest pain, no new numbness, tingling , or weakness. Objective: Vital Signs Temp Pulse Resp BP Pulse Ox 36.7 C 63 16 153/94 H 92 02/19/17 05:34 02/19/17 08:15 02/19/17 05:23 02/19/17 08:15 02/19/17 05:23 Laboratory Results 02/14/17 06:00 02/19/17 06:05 02/18/17 02/19/17 02/20/17 05:59 05:59 05:59 Intake Total 758 1002 Output Total 550 150 Balance 208 1002 -150 Physical Exam - Physical Exam General Appearance: WD/WN, alert, No no apparent distress Respiratory: No respiratory distress, No accessory muscle use Cardiac/Chest: normal peripheral pulses, regular rate, rhythm, No edema Skin: normal color, warm/dry, other ( Facial incisions are healing well), No cyanosis Extremities: No pedal edema, No swelling Neuro/Psych: alert, normal mood/affect ( strength 5/5 in bilateral upper limbs) ICD10 Worksheet Patient Problems: Problems Problem Status Onset Chronic Disease Mgmt/Transitional Care Acute PNA (pneumonia) Acute PVD (peripheral vascular disease) Acute Tobacco abuse Acute
[2017-02-19] MEDS: LOPERAMIDE HCL 2 MG CAP PO PRN (17:05)
[2017-02-19] MEDS: traZODone 50 MG TAB PO SCH (20:40)
[2017-02-19] MEDS: ATORVASTATIN CALCIUM 40 MG TAB PO SCH (20:41)
[2017-02-19] MEDS: FLUTICASONE NASAL 120 SPRAYS/16 GM MDI EACHNARE SCH (20:42)
[2017-02-20] MEDS: NYSTATIN SUSP 500000 UNIT/5 ML UDCUP PO SCH ×4 (06:00→20:39)
[2017-02-20] MEDS: Donepezil Hcl [Aricept] 23 MG PO SCH (08:58)
[2017-02-20] MEDS: ENOXAPARIN 40 MG/0.4 ML SYR SC SCH (08:59)
[2017-02-20] MEDS: ASPIRIN 325 MG TAB PO SCH (08:59)
[2017-02-20] MEDS: FLUoxetine 20 MG CAP PO SCH (08:59)
[2017-02-20] MEDS: NICOTINE 21 MG/24 HR PATCH TD SCH (08:59)
[2017-02-20] MEDS: METOPROLOL SUCCINATE XR 25 MG TAB PO SCH (08:59)
[2017-02-20] MEDS: BENEFIBER/NUTRISOURCE FIBER PKT 1 EACH PO SCH ×2 (08:59→20:40)
[2017-02-20] MEDS: LISINOPRIL 20 MG TAB PO SCH (09:00)
[2017-02-20] MEDS: OMEGA-3 FATTY ACIDS 1,000 MG CAP PO SCH (09:00)
[2017-02-20] MEDS: MEMANTINE HCL 5 MG TAB PO SCH (09:00)
[2017-02-20] MEDS: GABAPENTIN 400 MG CAP PO SCH ×2 (09:01→20:39)
[2017-02-20] MEDS: metFORMIN HCL 500 MG TAB PO SCH ×2 (09:01→17:06)
[2017-02-20] MEDS: PRESERVISION AREDS2 FORMULA EYE VIT 1 EACH PO SCH ×2 (09:01→17:06)
[2017-02-20] MEDS: GLUCOSAMINE/CHONDROITIN CAP PO SCH (09:01)
[2017-02-20] MEDS: VITAMIN B COMPLEX 1 EA CAP/TAB PO SCH (09:01)
[2017-02-20] MEDS: glipiZIDE 5 MG TAB PO SCH ×2 (09:01→17:06)
--- NOTE | 2017-02-20 10:45 | SOAPPROG ---
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 Initial FIM 62 on 02/06/17, improved to 80 on 02/13/17; to 84 as of 02/20/17. T' vict[place] with supervision & cues for safety; little carry-over of strategies.. Stairs with CGA.. Walked 150' FWW SBA but CGA for turns.. Had multiple LOB while dressing and poor self-correction. Balance, ambulation complicated by peripheral neuropathy and decreased proprioception. Continue physical therapy and occupational therapy to optimize mobility and activities of daily living. * Dysphagia and cognitive impairment. DD2 NTL texture with cueing to slow down ; trial of regular, thin 02/13/17; advanced to DD3 NTL. Cues and close supervision for small bites, slow rate. Decreased exec fn, SOP, attn; making gains. Continue Speech and Language Pathology. * Secondary stroke prevention with blood pressure control, statin, and aspirin. * Permissive Hypertension. Keep the systolic blood pressure less than 180 mg for the first week, then less than 160 mg for the second week (starting 02/09/17) , and then less than 130/80 for the third week (starting 02/16/17). Increase lisinopril from 10 mg QD to 20 mg QD starting 02/16/17, to 40 mg QD starting . Metoprolol restarted at 50 mg QD on 02/16/17; will reduce to 25 mg QD due to bradycardia. Continue to monitor. * Somnolence. Change trazodone from 50 mg QHS to 25 mg QHS starting 02/08/17. Improving. Chronic/stable conditions: * Recent cataract surgery and recent left blepharoplasty. Seen by moving worker 02/07/17 and sutures removed. D/C'd erythromycin topical . Post-cataract eyedrops were discontinued 02/05/17 after discussion with moving worker's office. * Intermittent diarrhea. Add Imodium on a p.r.n. basis, as has been his habit at home. * Depression? Fluoxetine had been started for neurorecovery. * Diabetes mellitus, type 2. Continue metformin and glipizide. * Dementia. Given his vascular findings on brain imaging, this is as likely a vascular dementia as it is Alzheimer's. Continue memantine and donepezil. * Cough with phlegm production, resolved. Leukocytosis on CBC 02/03/17 & but cough much improved and hypoxia mostly at night and not severe; CXR showed bronchitis; no treatment at present. 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 Continue gabapentin. * Peripheral vascular disease. Will benefit from the same aggressive risk factor control, as will be in place for his cerebrovascular disease. * Prophylaxis. He was treated with subcutaneous heparin in the hospital. We will continue enoxaparin on a prophylactic dose until his mobility has improved to the point where his risk for DVT is reduced. Attended staffing, 15 min. D/W case mgmt, nursing, PT, OT, WEB PRESS OPERATOR. works during the day and will not be available at home. [facility] discharge unless he improves considerably. Plan fo discharge 02/26/17. 02/20/17 11:57 Subjective: No complaints other than feeling tired. Continues to use "5 hour energy" supplement. Sleeps well. No f/c, cough/dyspnea. Objective: Vital Signs Temp Pulse Resp BP Pulse Ox 36.9 C 64 18 120/61 91 L 02/20/17 08:00 02/20/17 08:59 02/20/17 08:00 02/20/17 09:00 02/20/17 08:00 Laboratory Results 02/14/17 06:00 02/19/17 06:05 02/19/17 02/20/17 02/21/17 05:59 05:59 05:59 Intake Total 1002 480 220 Output Total 800 Balance 1002 -320 220 - Time Spent With Patient Time Spent With Patient: Greater than 35 minutes floor time today, including more than 50% of time in coordination of care during staffing meeting, and counseling patient. Physical Exam - Physical Exam General Appearance: WD/WN, alert, no apparent distress Respiratory: normal breath sounds, No crackles, No rhonchi, No wheezing Cardiac/Chest: regular rate, rhythm, No edema Skin: normal color, warm/dry Neuro/Psych: alert, normal mood/affect ICD10 Worksheet Patient Problems: Problems Problem Status Onset Chronic Disease Mgmt/Transitional Care Acute PNA (pneumonia) Acute PVD (peripheral vascular disease) Acute Tobacco abuse Acute
[2017-02-20] MEDS: [UNRECOGNIZED DRUG - OTHER] PO PRN (11:57)
[2017-02-20] MEDS: ATORVASTATIN CALCIUM 40 MG TAB PO SCH (20:40)
[2017-02-20] MEDS: traZODone 50 MG TAB PO SCH (20:40)
[2017-02-20] MEDS: levETIRAcetam 500 MG TAB PO SCH (20:40)
[2017-02-20] MEDS: FLUTICASONE NASAL 120 SPRAYS/16 GM MDI EACHNARE SCH (23:43)
[2017-02-21] MEDS: LOPERAMIDE HCL 2 MG CAP PO PRN (01:30)
[2017-02-21] MEDS: MODAFINIL 100 MG TAB PO SCH (06:00)
[2017-02-21] MEDS: NYSTATIN SUSP 500000 UNIT/5 ML UDCUP PO SCH ×4 (06:00→20:57)
[2017-02-21] MEDS: BENEFIBER/NUTRISOURCE FIBER PKT 1 EACH PO SCH ×2 (08:04→21:01)
[2017-02-21] MEDS: GLUCOSAMINE/CHONDROITIN CAP PO SCH (08:04)
[2017-02-21] MEDS: levETIRAcetam 500 MG TAB PO SCH ×2 (08:04→20:57)
[2017-02-21] MEDS: NICOTINE 21 MG/24 HR PATCH TD SCH (08:04)
[2017-02-21] MEDS: PRESERVISION AREDS2 FORMULA EYE VIT 1 EACH PO SCH ×2 (08:04→16:51)
[2017-02-21] MEDS: ENOXAPARIN 40 MG/0.4 ML SYR SC SCH (08:04)
[2017-02-21] MEDS: GABAPENTIN 400 MG CAP PO SCH ×2 (08:04→20:57)
[2017-02-21] MEDS: Donepezil Hcl [Aricept] 23 MG PO SCH (08:05)
[2017-02-21] MEDS: metFORMIN HCL 500 MG TAB PO SCH ×2 (08:05→16:51)
[2017-02-21] MEDS: OMEGA-3 FATTY ACIDS 1,000 MG CAP PO SCH (08:05)
[2017-02-21] MEDS: VITAMIN B COMPLEX 1 EA CAP/TAB PO SCH (08:05)
[2017-02-21] MEDS: glipiZIDE 5 MG TAB PO SCH ×2 (08:05→16:49)
[2017-02-21] MEDS: ASPIRIN 325 MG TAB PO SCH (08:05)
[2017-02-21] MEDS: MEMANTINE HCL 5 MG TAB PO SCH (08:05)
[2017-02-21] MEDS: FLUoxetine 20 MG CAP PO SCH (08:05)
[2017-02-21] MEDS: LISINOPRIL 20 MG TAB PO SCH (08:09)
[2017-02-21] MEDS: METOPROLOL SUCCINATE XR 25 MG TAB PO SCH (08:09)
[2017-02-21] MEDS ORDERED: MODAFINIL 100 MG TAB PO SCH (09:00)
--- NOTE | 2017-02-21 11:26 | SOAPPROG ---
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 Initial FIM 62 on 02/06/17, improved to 80 on 02/13/17; to 84 as of 02/20/17. T' victoria with supervision & cues for safety; little carry-over of strategies.. Stairs with CGA.. Walked 150' FWW SBA but CGA for turns.. Had multiple LOB while dressing and poor self-correction. Balance, ambulation complicated by peripheral neuropathy and decreased proprioception. Continue physical therapy and occupational therapy to optimize mobility and activities of daily living. * Dysphagia and cognitive impairment. DD2 NTL texture with cueing to slow down ; trial of regular, thin 02/13/17; advanced to DD3 NTL. Cues and close supervision for small bites, slow rate. Decreased exec fn, SOP, attn; making gains. Continue Speech and Language Pathology. * Likely seizure 02/20/17: Discussed with Neurology Dr. Melendez on 02/20/2017. At advice of obtain head CT which ruled out bleed; initiated levetiracetam. Discontinued 5 hour energy. * Secondary stroke prevention with blood pressure control, statin, and aspirin. Should have dual antiplatelet therapy. Will add clopidogrel when enoxaparin is no longer needed. Extra caution re antiplatelet/anticoagulant due to fall risk. * Permissive Hypertension. Keep the systolic blood pressure less than 180 mg for the first week, then less than 160 mg for the second week (starting 02/09/17) , and then less than 130/80 for the third week (starting 02/16/17). Increase lisinopril from 10 mg QD to 20 mg QD starting 02/16/17, to 40 mg QD starting . Metoprolol restarted at 50 mg QD on 02/16/17; will reduce to 25 mg QD due to bradycardia. Continue to monitor. * Somnolence. Change trazodone from 50 mg QHS to 25 mg QHS starting 02/08/17. With discontinuation of 5 hour energy, initiated modafinil 02/21/17. Monitor for adverse effects and consider increasing dose. Overnight oximetry tonight 06/30 to screen for sleep apnea. Chronic/stable conditions: * Recent cataract surgery and recent left blepharoplasty. Seen by engineer automated equipment 02/07/17 and sutures removed. D/C'd erythromycin topical . Post-cataract eyedrops were discontinued 02/05/17 after discussion with engineer automated equipment's office. * Intermittent diarrhea. Add Imodium on a p.r.n. basis, as has been his habit at home. * Depression? Fluoxetine had been started for neurorecovery. * Diabetes mellitus, type 2. Continue metformin and glipizide. * Dementia. Given his vascular findings on brain imaging, this is as likely a vascular dementia as it is Alzheimer's. Continue memantine and donepezil. * Cough with phlegm production, resolved. Leukocytosis on CBC 02/03/17 & but cough much improved and hypoxia mostly at night and not severe; CXR showed bronchitis; no treatment at present. 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 Continue gabapentin. * Peripheral vascular disease. Will benefit from the same aggressive risk factor control, as will be in place for his cerebrovascular disease. * Prophylaxis. He was treated with subcutaneous heparin in the hospital. We will continue enoxaparin on a prophylactic dose until his mobility has improved to the point where his risk for DVT is reduced. Attendant family meeting, 30 minutes. Multiple family members in attendance including and son. Discussed current functional status in detail. [facility] for continued therapy at a less intensive level for a more prolonged duration. Follow-up: He should follow up with neurologist Dr. Melendez after his discharge from the prison facility and he will have follow-up with his new attending physician at the prison facility. 02/21/17 12:45 Subjective: Mr. Lopez has no complaints this morning. He reports improved alertness though he thinks the affect is fading. He denies cough or dyspnea fevers or chills nausea vomiting constipation or diarrhea. Objective: Vital Signs Temp Pulse Resp BP Pulse Ox 37.1 C 54 L 16 137/74 H 92 02/21/17 06:38 02/21/17 08:09 02/21/17 06:38 02/21/17 08:09 02/21/17 06:38 Laboratory Results 02/14/17 06:00 07/09/17 06:05 02/20/17 02/21/17 02/22/17 05:59 05:59 05:59 Intake Total 480 780 236 Output Total 800 350 Balance -320 430 236 - Time Spent With Patient Time Spent With Patient: Greater than 35 minutes 4 times a day, including more than 50% of time in coordination of care and counseling during family meeting. Physical Exam - Physical Exam General Appearance: WD/WN, alert, no apparent distress Respiratory: normal breath sounds, No crackles, No rhonchi, No wheezing Cardiac/Chest: regular rate, rhythm, No edema Skin: normal color, warm/dry Neuro/Psych: no motor/sensory deficits, alert, normal mood/affect, oriented x 3 ICD10 Worksheet Patient Problems: Problems Problem Status Onset Chronic Disease Mgmt/Transitional Care Acute PNA (pneumonia) Acute PVD (peripheral vascular disease) Acute Tobacco abuse Acute
[2017-02-21] MEDS: ATORVASTATIN CALCIUM 40 MG TAB PO SCH (20:57)
[2017-02-21] MEDS: traZODone 50 MG TAB PO SCH (20:59)
[2017-02-21] MEDS: FLUTICASONE NASAL 120 SPRAYS/16 GM MDI EACHNARE SCH (20:59)
[2017-02-22] MEDS: NYSTATIN SUSP 500000 UNIT/5 ML UDCUP PO SCH ×4 (07:12→21:08)
[2017-02-22] MEDS: MODAFINIL 100 MG TAB PO SCH (07:12)
[2017-02-22] MEDS: ENOXAPARIN 40 MG/0.4 ML SYR SC SCH (08:15)
[2017-02-22] MEDS: metFORMIN HCL 500 MG TAB PO SCH ×2 (08:15→17:52)
[2017-02-22] MEDS: PRESERVISION AREDS2 FORMULA EYE VIT 1 EACH PO SCH ×2 (08:15→17:52)
[2017-02-22] MEDS: LISINOPRIL 20 MG TAB PO SCH (08:15)
[2017-02-22] MEDS: BENEFIBER/NUTRISOURCE FIBER PKT 1 EACH PO SCH ×2 (08:15→21:07)
[2017-02-22] MEDS: MEMANTINE HCL 5 MG TAB PO SCH (08:15)
[2017-02-22] MEDS: Donepezil Hcl [Aricept] 23 MG PO SCH (08:15)
[2017-02-22] MEDS: METOPROLOL SUCCINATE XR 25 MG TAB PO SCH (08:15)
[2017-02-22] MEDS: GABAPENTIN 400 MG CAP PO SCH ×2 (08:16→21:07)
[2017-02-22] MEDS: FLUoxetine 20 MG CAP PO SCH (08:16)
[2017-02-22] MEDS: GLUCOSAMINE/CHONDROITIN CAP PO SCH (08:16)
[2017-02-22] MEDS: OMEGA-3 FATTY ACIDS 1,000 MG CAP PO SCH (08:16)
[2017-02-22] MEDS: ASPIRIN 325 MG TAB PO SCH (08:16)
[2017-02-22] MEDS: levETIRAcetam 500 MG TAB PO SCH ×2 (08:16→21:08)
[2017-02-22] MEDS: NICOTINE 21 MG/24 HR PATCH TD SCH (08:16)
[2017-02-22] MEDS: glipiZIDE 5 MG TAB PO SCH ×2 (08:17→16:42)
[2017-02-22] MEDS: VITAMIN B COMPLEX 1 EA CAP/TAB PO SCH (08:17)
[2017-02-22] MEDS ORDERED: MODAFINIL 100 MG TAB PO ONE (10:46)
--- NOTE | 2017-02-22 10:58 | SOAPPROG ---
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 Initial FIM 62 on 02/06/17, improved to 80 on 02/13/17; to 84 as of 02/20/17. T' victoria with supervision & cues for safety; little carry-over of strategies.. Stairs with CGA. Walked 150' FWW SBA but CGA for turns.. Had multiple LOB while dressing and poor self-correction. Balance, ambulation complicated by peripheral neuropathy and decreased proprioception. Continue physical therapy and occupational therapy to optimize mobility and activities of daily living. * Dysphagia and cognitive impairment. DD2 NTL texture with cueing to slow down ; trial of regular, thin 02/13/17; advanced to DD3 NTL. Cues and close supervision for small bites, slow rate. Decreased exec fn, SOP, attn; making gains. Continue Speech and Language Pathology. * Likely seizure 02/20/17: Discussed with Neurology Dr. Melendez on 02/20/2017. At advice of obtain head CT which ruled out bleed; initiated levetiracetam. Discontinued 5 hour energy. * Secondary stroke prevention with blood pressure control, statin, and aspirin. Should have dual antiplatelet therapy. Will add clopidogrel when enoxaparin is no longer needed. Extra caution re antiplatelet/anticoagulant due to fall risk. * Permissive Hypertension. Keep the systolic blood pressure less than 180 mg for the first week, then less than 160 mg for the second week (starting 02/09/17) , and then less than 130/80 for the third week (starting 02/16/17). Increase lisinopril from 10 mg QD to 20 mg QD starting 02/16/17, to 40 mg QD starting . Metoprolol restarted at 50 mg QD on 02/16/17; will reduce to 25 mg QD due to bradycardia. Continue to monitor. * Somnolence. Change trazodone from 50 mg QHS to 25 mg QHS starting 02/08/17. With discontinuation of 5 hour energy, initiated modafinil 02/21/17. No adverse effects noted and he requests increased dose. Will increase to 200mg QD starting 02/22/17. Overnight oximetry 02/21/17 w/out apneic episodes but 33% of time between 86 and 89%, inconclusive re whether he would benefit from overnight O2. He should have a full sleep study after discharge. Chronic/stable conditions: * Recent cataract surgery and recent left blepharoplasty. Seen by management nurse rn 02/07/17 and sutures removed. D/C'd erythromycin topical . Post-cataract eyedrops were discontinued 02/05/17 after discussion with management nurse rn's office. * Intermittent diarrhea. Add Imodium on a p.r.n. basis, as has been his habit at home. * Depression? Fluoxetine had been started for neurorecovery. * Diabetes mellitus, type 2. Continue metformin and glipizide. * Dementia. Given his vascular findings on brain imaging, this is as likely a vascular dementia as it is Alzheimer's. Continue memantine and donepezil. * Cough with phlegm production, resolved. Leukocytosis on CBC 02/03/17 & but cough much improved and hypoxia mostly at night and not severe; CXR showed bronchitis; no treatment at present. 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 Continue gabapentin. * Peripheral vascular disease. Will benefit from the same aggressive risk factor control, as will be in place for his cerebrovascular disease. * Prophylaxis. He was treated with subcutaneous heparin in the hospital. We will continue enoxaparin on a prophylactic dose until his mobility has improved to the point where his risk for DVT is reduced. [facility] for continued therapy at a less intensive level for a more prolonged duration. Follow-up: He should follow up with neurologist Dr. Melendez after his discharge from the [facility] facility and he will have follow-up with his new attending physician at the [facility] facility. Advise sleep study after discharge re overnight hypoxia. 02/22/17 13:38 Subjective: Slept well except that complained about pulse oximeter on his finger overnight. Feels okay today but on further discussion would like a higher dose of mode [place]. Denies fevers chills cough dyspnea. Objective: Vital Signs Temp Pulse Resp BP Pulse Ox 36.6 C 61 18 144/69 H 93 02/22/17 08:00 02/22/17 08:15 02/22/17 08:00 02/22/17 08:15 02/22/17 08:00 Laboratory Results 02/14/17 06:00 02/19/17 06:05 02/21/17 02/22/17 02/23/17 05:59 05:59 05:59 Intake Total 780 356 120 Output Total 350 200 Balance 430 156 120 Physical Exam - Physical Exam General Appearance: WD/WN, alert, no apparent distress Respiratory: normal breath sounds, No crackles, No rhonchi, No wheezing Cardiac/Chest: regular rate, rhythm, No edema Skin: normal color, warm/dry Neuro/Psych: alert, normal mood/affect, oriented x 3 ICD10 Worksheet Patient Problems: Problems Problem Status Onset Chronic Disease Mgmt/Transitional Care Acute PNA (pneumonia) Acute PVD (peripheral vascular disease) Acute Tobacco abuse Acute
[2017-02-22] MEDS: traZODone 50 MG TAB PO SCH (21:07)
[2017-02-22] MEDS: ATORVASTATIN CALCIUM 40 MG TAB PO SCH (21:07)
[2017-02-22] MEDS: FLUTICASONE NASAL 120 SPRAYS/16 GM MDI EACHNARE SCH (21:12)
[2017-02-23] MEDS: MODAFINIL 100 MG TAB PO SCH (06:14)
[2017-02-23] MEDS: NYSTATIN SUSP 500000 UNIT/5 ML UDCUP PO SCH ×4 (06:14→21:13)
[2017-02-23] MEDS: GABAPENTIN 400 MG CAP PO SCH ×2 (08:11→21:14)
[2017-02-23] MEDS: MEMANTINE HCL 5 MG TAB PO SCH (08:11)
[2017-02-23] MEDS: GLUCOSAMINE/CHONDROITIN CAP PO SCH (08:12)
[2017-02-23] MEDS: PRESERVISION AREDS2 FORMULA EYE VIT 1 EACH PO SCH ×2 (08:12→17:20)
[2017-02-23] MEDS: OMEGA-3 FATTY ACIDS 1,000 MG CAP PO SCH (08:12)
[2017-02-23] MEDS: VITAMIN B COMPLEX 1 EA CAP/TAB PO SCH (08:12)
[2017-02-23] MEDS: NICOTINE 21 MG/24 HR PATCH TD SCH (08:12)
[2017-02-23] MEDS: metFORMIN HCL 500 MG TAB PO SCH ×2 (08:12→17:20)
[2017-02-23] MEDS: glipiZIDE 5 MG TAB PO SCH ×2 (08:12→17:20)
[2017-02-23] MEDS: BENEFIBER/NUTRISOURCE FIBER PKT 1 EACH PO SCH ×2 (08:12→21:12)
[2017-02-23] MEDS: levETIRAcetam 500 MG TAB PO SCH ×2 (08:12→21:14)
[2017-02-23] MEDS: FLUoxetine 20 MG CAP PO SCH (08:12)
[2017-02-23] MEDS: ASPIRIN 325 MG TAB PO SCH (08:13)
[2017-02-23] MEDS: ENOXAPARIN 40 MG/0.4 ML SYR SC SCH (08:13)
[2017-02-23] MEDS: LISINOPRIL 20 MG TAB PO SCH (08:13)
[2017-02-23] MEDS: METOPROLOL SUCCINATE XR 25 MG TAB PO SCH (08:13)
[2017-02-23] MEDS: Donepezil Hcl [Aricept] 23 MG PO SCH (08:18)
--- NOTE | 2017-02-23 13:49 | SOAPPROG ---
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 Initial FIM 62 on 02/06/17, improved to 80 on 02/13/17; to 84 as of 02/20/17. T' victoria with supervision & cues for safety; little carry-over of strategies.. Stairs with CGA. Walked 150' FWW SBA but CGA for turns.. Had multiple LOB while dressing and poor self-correction. Balance, ambulation complicated by peripheral neuropathy and decreased proprioception. Continue physical therapy and occupational therapy to optimize mobility and activities of daily living. * Dysphagia and cognitive impairment. DD2 NTL texture with cueing to slow down ; trial of regular, thin 02/13/17; advanced to DD3 NTL. Cues and close supervision for small bites, slow rate. Decreased exec fn, SOP, attn; making gains. Continue Speech and Language Pathology. * Likely seizure 02/20/17: Discussed with Neurology Dr. Melendez on 02/20/2017. At advice of obtain head CT which ruled out bleed; initiated levetiracetam. Discontinued 5 hour energy. * Secondary stroke prevention with blood pressure control, statin, and aspirin. Should have dual antiplatelet therapy. D/C enoxaparin 02/24/17 and start clopidogrel. Due to interaction with fluoxetine will switch antidepressant to citalopram. * Permissive Hypertension. Keep the systolic blood pressure less than 180 mg for the first week, then less than 160 mg for the second week (starting 02/09/17) , and then less than 130/80 for the third week (starting 02/16/17). Increase lisinopril from 10 mg QD to 20 mg QD starting 02/16/17, to 40 mg QD starting . Metoprolol restarted at 50 mg QD on 02/16/17; will reduced 25 mg QD due to bradycardia. Continue to monitor. May need addition of a 3rd agent for instance amlodipine. * Somnolence. Change trazodone from 50 mg QHS to 25 mg QHS starting 02/08/17. With discontinuation of 5 hour energy, initiated modafinil 02/21/17. No adverse effects noted and he requests increased dose. Will increase to 200mg QD starting 02/22/17. Overnight oximetry 02/21/17 w/out apneic episodes but 33% of time between 86 and 89%, inconclusive re whether he would benefit from overnight O2. He should have a full sleep study after discharge. Chronic/stable conditions: * Recent cataract surgery and recent left blepharoplasty. Seen by scale balancer 02/07/17 and sutures removed. D/C'd erythromycin topical . Post-cataract eyedrops were discontinued 02/05/17 after discussion with scale balancer's office. * Intermittent diarrhea. Add Imodium on a p.r.n. basis, as has been his habit at home. * Depression? Fluoxetine had been started for neurorecovery. Change to citalopram starting 02/24/2017 due to interaction with clopidogrel. * Diabetes mellitus, type 2. Continue metformin and glipizide. * Dementia. Given his vascular findings on brain imaging, this is as likely a vascular dementia as it is Alzheimer's. Continue memantine and donepezil. * Cough with phlegm production, resolved. Leukocytosis on CBC 02/03/17 & but cough much improved and hypoxia mostly at night and not severe; CXR showed bronchitis; no treatment at present. 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 Continue gabapentin. * Peripheral vascular disease. Will benefit from the same aggressive risk factor control, as will be in place for his cerebrovascular disease. * Prophylaxis. He was treated with subcutaneous heparin in the hospital. We will continue enoxaparin on a prophylactic dose until his mobility has improved to the point where his risk for DVT is reduced. Plan is for discharge to nursing home facility on 02/24/2017 for continued therapy at a less intensive level for a more prolonged duration. Follow-up: He should follow up with neurologist Dr. Melendez after his discharge from the nursing home facility and he will have follow-up with his new attending physician at the nursing home facility. Advise sleep study after discharge re overnight hypoxia. 02/23/17 13:43 Subjective: No complaints today. Slept well. Denies fevers, chills, cough, dyspnea. Objective: Vital Signs Temp Pulse Resp BP Pulse Ox 36.7 C 56 L 16 126/73 H 91 L 02/23/17 08:00 02/23/17 08:13 02/23/17 08:00 02/23/17 08:13 02/23/17 08:00 Laboratory Results 02/14/17 06:00 02/19/17 06:05 02/22/17 02/23/17 02/24/17 05:59 05:59 05:59 Intake Total 356 1080 Output Total 200 325 Balance 156 755 Physical Exam - Physical Exam General Appearance: WD/WN, alert, no apparent distress Respiratory: normal breath sounds, No crackles, No rhonchi, No wheezing Cardiac/Chest: regular rate, rhythm, No edema Skin: normal color, warm/dry Neuro/Psych: alert, normal mood/affect, oriented x 3, motor weakness (Unable to maneuver wheelchair in his room due to either weakness or reduced motor planning on the left lower extremity) ICD10 Worksheet Patient Problems: Problems Problem Status Onset Chronic Disease Mgmt/Transitional Care Acute PNA (pneumonia) Acute PVD (peripheral vascular disease) Acute Tobacco abuse Acute
[2017-02-23] MEDS: FLUTICASONE NASAL 120 SPRAYS/16 GM MDI EACHNARE SCH (21:12)
[2017-02-23] MEDS: ATORVASTATIN CALCIUM 40 MG TAB PO SCH (21:14)
[2017-02-23] MEDS: traZODone 50 MG TAB PO SCH (21:14)
[2017-02-24] MEDS: MODAFINIL 100 MG TAB PO SCH (06:04)
[2017-02-24] MEDS: NYSTATIN SUSP 500000 UNIT/5 ML UDCUP PO SCH ×2 (06:04→12:30)
[2017-02-24 06:40] VITALS: BP 134/61; RESP 16; TEMP 98.4; O2SAT 91
[2017-02-24] MEDS: metFORMIN HCL 500 MG TAB PO SCH (07:58)
[2017-02-24] MEDS: PRESERVISION AREDS2 FORMULA EYE VIT 1 EACH PO SCH (07:58)
[2017-02-24] MEDS: glipiZIDE 5 MG TAB PO SCH (07:58)
[2017-02-24] MEDS: ASPIRIN 325 MG TAB PO SCH (07:59)
[2017-02-24] MEDS: Donepezil Hcl [Aricept] 23 MG PO SCH (08:00)
[2017-02-24] MEDS: GABAPENTIN 400 MG CAP PO SCH (08:00)
[2017-02-24] MEDS: GLUCOSAMINE/CHONDROITIN CAP PO SCH (08:00)
[2017-02-24] MEDS: METOPROLOL SUCCINATE XR 25 MG TAB PO SCH (08:01)
[2017-02-24] MEDS: MEMANTINE HCL 5 MG TAB PO SCH (08:01)
[2017-02-24] MEDS: BENEFIBER/NUTRISOURCE FIBER PKT 1 EACH PO SCH (08:01)
[2017-02-24] MEDS: levETIRAcetam 500 MG TAB PO SCH (08:01)
[2017-02-24] MEDS: LISINOPRIL 20 MG TAB PO SCH (08:01)
[2017-02-24] MEDS: ACETAMINOPHEN 325 MG TAB PO PRN (08:04)
[2017-02-24] MEDS: OMEGA-3 FATTY ACIDS 1,000 MG CAP PO SCH (08:04)
[2017-02-24] MEDS: VITAMIN B COMPLEX 1 EA CAP/TAB PO SCH (08:04)
[2017-02-24] MEDS: NICOTINE 21 MG/24 HR PATCH TD SCH (08:04)
[2017-02-24 08:05] VITALS: PULSE 50
[2017-02-24] MEDS ORDERED: CITALOPRAM 20 MG TAB PO SCH (09:00)
[2017-02-24] MEDS ORDERED: CLOPIDOGREL BISULFATE 75 MG TAB PO SCH (09:00)
--- NOTE | 2017-02-24 22:41 | GDS ---
[f rep st] DISCHARGE SUMMARY ADMITTING DIAGNOSIS: Cerebrovascular accident of the right basal ganglia with left-sided hemiparesis. DISCHARGE DIAGNOSIS: Cerebrovascular accident of the right basal ganglia with left-sided hemiparesis. OTHER DIAGNOSES: 1. Dysphagia. 2. Hypertension. 3. Somnolence. CONSULTATIONS: None. PROCEDURES: None. COMPLICATIONS: None. HISTORY AND HOSPITAL COURSE: The patient was admitted from [facility]. He had presented there on 02/01/2017 with left sided weakness.. Brain imaging showed a right middle cerebral artery territory ischemic infarct in the basal ganglia. He had presented too late after onset of symptoms for thrombolytic therapy. In the hospital, he was started on aspirin and atorvastatin. He initially had permissive hypertension. Echocardiogram showed no cardiac source. He had telemetry, and there was no atrial fibrillation. He was begun on lisinopril for blood pressure. He did well in rehabilitation. His initial functional independence measure was 62 on 02/06/2017, which is consistent with half-way care, needing assistance with most or all mobility-related activities and activities of daily living. His functional independence measure improved to 80 on 02/13/2017 and to 84 as of 02/20/2017. 84 is consistent with assisted living level of function ; however, he continued to have difficulty with consistent placement of his left foot during standing and ambulation with frequent loss of balance, requiring contact guard assist for ambulation and activities of daily living, such as lower body dressing. 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 He had dysphagia and cognitive impairment. He has a history of dementia, for which he is on medications. His diet was advanced from dysphagia 2 to dysphagia 3. He continued to have nectar-thick liquids. Regarding cognition, he was noted to have decreased executive function, speed of processing, and attention; he was improving during his stay. He most likely had a seizure on 02/20/2017. This was during a speech therapy session while receiving myofascial work to improve his swallowing. He had an episode of myoclonus on the left upper and lower extremities. This was discussed with neurologist, Dr. Melendez, who had seen him at [facility]. A head CT was obtained which ruled out a bleed. He was started on levetiracetam. He had been drinking several cups of coffee a day plus using "5-Hour [employer]" supplement which is mostly caffeine. The "5-Hour Energy" supplement was discontinued, and he had no further seizure-like activity during his stay. He had somnolence, for which he was using caffeine. After the discontinuation of the "5Hour Energy" supplement, he was begun on modafinil initially 100 mg daily and subsequently increased to 200 mg daily. He continued to complain of fatigue, especially in the afternoons. In terms of evaluating the possible etiology, it was noted that he had recently had a normal TSH, and his laboratory studies were otherwise unremarkable. He had polycythemia with a hemoglobin of 18 and a hematocrit of 51.5, so there was suspicion regarding chronic hypoxemia and/or sleep apnea. He had a nocturnal oximetry study which showed some hypoxemia but neither ruled out nor ruled in sleep apnea. He was s advised to have a full sleep study to determine whether he has sleep apnea or other sleep disturbance that would be contributing to his somnolence. After his period of permissive hypertension, his lisinopril was titrated eventually to 40 mg daily. Metoprolol was started at 50 mg daily and subsequently reduced to 25 mg due to bradycardia. Overall, his blood pressure was at the target of less than 130/80, though he had occasional systolic excursions as high as 158 two days before discharge. Regarding secondary stroke prevention, dual anti-platelet therapy was indicated. He was maintained on aspirin alone for most of his stay due to concurrent enoxaparin for DVT prophylaxis and his fall risk. On the day of discharge, enoxaparin is discontinued. It has been approximately a month since his stroke. He does not have hemiparesis, and he is able to ambulate with contact guard assist for adequate distances to reduce his DVT risk. Clopidogrel was initiated on the day of discharge. OTHER LABORATORY AND STUDIES DURING HIS STAY: His polycythemia was stable. He had an elevated white blood cell count, as high as 10.84 on 02/04/2017. It had improved to 9.73 as of 02/14/2017. His blood sugars were monitored for several days. There were occasional highs as high as 187, but overall he did not have a need for supplemental insulin, and he was maintained on his oral hypoglycemic medications. A chest x-ray was obtained when he first presented due to cough. It showed bronchitis/airway disease but no pneumonia. Albuterol was ordered for him, but he did not use it during his stay. DISCHARGE PHYSICAL EXAMINATION: VITAL SIGNS: Blood pressure is 122/66, heart rate is 54, respiratory rate is 16, oxygen saturation is 91% on room air, temperature is 36.9 degrees centigrade. GENERAL: This is a well-nourished, well-developed man, ambulating in the [place] using a front-wheeled walker with physical therapy. Comes to seated in his wheelchair. Cooperative and in no acute distress. HEENT: Extraocular movements are intact. Pupils are equal, round, and reactive to light. Mucous membranes are moist. Dentition is in good condition. NECK: Supple. HEART: regular rate and rhythm with no murmurs , rubs, or gallops. LUNGS: Clear to auscultation bilaterally. ABDOMEN: Soft , nontender, nondistended with normoactive bowel sounds. EXTREMITIES: No cyanosis, clubbing, or edema. NEUROLOGIC: Alert and oriented x3. Cranial nerves 2 through 12 are grossly intact, but he has a mild left facial droop. Motor strength is 5/5 overall. With ambulation he is noted to have a lean to the left, and though he is able to support his weight fully on his left lower extremity, there is inconsistency in terms of foot placement for optimal balance. When he comes to seated in a chair, he is unable to control his rate of descent at the end of the process and sits heavily into the chair. DISCHARGE PLAN: Condition upon discharge is good. Activity is ad mk, but he needs contact guard assist for all mobility-related activities. Diet is regular and dysphagia 3 texture. Date of next appointment: He will follow up within 1 to 2 weeks with his new attending physician to be assigned by [facility], and he will follow up within 1-2 weeks with neurology. Additionally, he is advised to have an outpatient sleep study to evaluate for obstructive sleep apnea or any other sleep disturbance which could be contributing to his somnolence and fatigue. MEDICATIONS AT DISCHARGE: 1. Albuterol 2 puffs q.4 hours p.r.n. 2. Citalopram 20 mg p.o. daily. 3. Clopidogrel 75 mg p.o. daily. 4. Fluticasone 1 spray each naris q.h.s. 5. Benefiber 1 p.o. b.i.d. 6. Levetiracetam 500 mg p.o. b.i.d. 7. Lisinopril 40 mg p.o. daily. 8. Loperamide 2 mg p.r.n. 9. Metoprolol succinate extended release 25 mg p.o. daily. 10. Modafinil 200 mg p.o. daily. 11. Byars-3 fatty acids 1000 mg p.o. daily. 12. Trazodone 25 mg p.o. q.h.s. 13. Glucosamine/chondroitin 1 p.o. daily. 14. Aspirin 325 mg p.o. daily. 15. Gabapentin 1200 mg p.o. b.i.d. 16. Nicotine patch daily. 17. Atorvastatin 40 mg p.o. q.h.s. 18. Acetaminophen 650 mg p.o. q.6 hours p.r.n. 19. Vitamin B complex 1 p.o. daily. 20. Ocuvite 1 p.o. daily. 21. Metformin 500 mg p.o. b.i.d. 22. Memantine 10 mg p.o. daily. 23. Glipizide 5 mg b.i.d. 24. Donepezil 23 mg p.o. daily. ISSUES TO BE ADDRESSED AT FOLLOWUP: 1. Functional status. He will continue to have physical and occupational therapies at [facility], and his functional status can be evaluated further with the new attending physician at [facility]. 2. Dementia. Continue memantine and donepezil. Continue speech and language pathology at [facility]. 3. Hypertension. Blood pressure should be followed. Consider addition of an additional agent such as a diuretic or calcium channel santos if his blood pressure is not at target. His bradycardia limits titration of metoprolol. 4. Likely seizure. Continue levetiracetam and follow up with Neurology regarding duration and need for continued levetiracetam. 5. Somnolence, especially in the afternoon. Continue modafinil. Unclear whether further titration would improve his alertness. Advise sleep study as an outpatient. 6. Peripheral neuropathy has been stable on gabapentin. 7. Diabetes mellitus has been stable on metformin and glipizide. He has been seen by Dr. Jones in the past. It is unclear whether Neurology follow up will be with with Dr. Rahman or Dr. Melendez. Copy requested to: [facility] Attn: Patient's new attending physician /[id number]/MODL MTDD
== END 2017-02-24 13:12 | DRG 57 ==
LOC: BREH 16:33
PROVIDERS: ADMIT Internal Medicine; ATTEND Internal Medicine
DX: I69.352 Hemiplegia and hemiparesis following cerebral infarction affecting left dominant side (principal); I69.391 Dysphagia following cerebral infarction; I69.314 Frontal lobe and executive function deficit following cerebral infarction; I69.322 Dysarthria following cerebral infarction; R13.10 Dysphagia, unspecified; I69.398 Other sequelae of cerebral infarction; R56.9 Unspecified convulsions; R40.0 Somnolence; I25.10 Atherosclerotic heart disease of native coronary artery without angina pectoris; I10 Essential (primary) hypertension; E11.42 Type 2 diabetes mellitus with diabetic polyneuropathy; R05 Cough; I65.02 Occlusion and stenosis of left vertebral artery; E78.5 Hyperlipidemia, unspecified; G30.9 Alzheimer's disease, unspecified; F02.80 Dementia in other diseases classified elsewhere, unspecified severity, without behavioral disturbance, psychotic disturbance, mood disturbance, and anxiety; K52.9 Noninfective gastroenteritis and colitis, unspecified; Z98.49 Cataract extraction status, unspecified eye; F17.210 Nicotine dependence, cigarettes, uncomplicated
CPT/HCPCS: 92507-GN; 92522-GN; 92526-GN; 92610-GN; 97110-GO; 97110-GP; 97112-GO; 97112-GP; 97116-GP; 97162-GP; 97166-GO; 97530-GO; 97530-GP; 97532-GO; 97535-GO; 97542-GP; 99366-GO; J1650

== ENCOUNTER → 2017-10-25 | Outpatient (CLI) | payer OTHER ==
[~2017-10-25] MED LIST: IOPAMIDOL (ISOVUE-300) 100 ML BTL ONE; IOPAMIDOL (ISOVUE-370) 150 ML BTL IV ONE
== END ==
LOC: FIMAGING 14:04
PROVIDERS: ATTEND Internal Medicine Cardiovascular Disease
DX: I70.92 Chronic total occlusion of artery of the extremities (principal); I77.1 Stricture of artery; I73.9 Peripheral vascular disease, unspecified; F17.200 Nicotine dependence, unspecified, uncomplicated
CPT/HCPCS: 75635; Q9967

== ENCOUNTER 2017-12-04 08:20 | Day surgery (SDC) | payer OTHER ==
[2017-12-04] MEDS ORDERED: diphenhydrAMINE 25 MG CAP PO ONE ×2 (08:24→08:59)
[2017-12-04] MEDS ORDERED: FAMOTIDINE 20 MG TAB PO ONE (08:24)
[2017-12-04] MEDS ORDERED: DIAZEPAM 5 MG TAB PO ONE (08:24)
[2017-12-04] MEDS ORDERED: ASPIRIN EC 325 MG TAB PO ONE (08:24)
[2017-12-04] MEDS ORDERED: NS 1,000 ML IV ONE (08:24)
--- NOTE | 2017-12-04 08:41 | CPEKG ---
Heart Rate: 52 RR Interval: 1154 P-R Interval: 172 QRSD Interval: 84 QT Interval: 456 QTC Interval: 424 P Hiltons: 79 QRS Hiltons: 81 T Wave Hiltons: 67 EKG Severity - OTHERWISE NORMAL ECG - EKG Impression: SINUS RHYTHM EKG Impression: BORDERLINE RIGHT AXIS DEVIATION Electronically Signed By: Solomon Rodriguez 04-Dec-2017 12:29:13
[2017-12-04] MEDS ORDERED: CLOPIDOGREL BISULFATE 75 MG TAB PO ONE ×2 (08:45→09:00)
[2017-12-04 08:56] LABS: PLATELET COUNT 174 10^3/uL (150-400)
[2017-12-04] MEDS ORDERED: DIAZEPAM 5 MG TAB ONE (08:59)
[2017-12-04] MEDS ORDERED: FAMOTIDINE 20 MG TAB ONE (08:59)
[2017-12-04] MEDS ORDERED: LIDOCAINE 1% 300 MG/30 ML SDV ONE (09:06)
[2017-12-04] MEDS ORDERED: fentaNYL 100 MCG/2 ML INJ ONE (09:06)
[2017-12-04] MEDS ORDERED: IOPAMIDOL (ISOVUE-300) 150 ML BTL ONE (09:06)
[2017-12-04] MEDS ORDERED: MIDAZOLAM 2 MG/2 ML VIAL ONE (09:06)
[2017-12-04 09:07] LABS: INR 1.01 (0.83-1.16); PROTIME(PATIENT) 13.5 SEC (12.0-15.0)
[2017-12-04] MEDS ORDERED: ONDANSETRON 4 MG/2 ML VIAL ONE (09:07)
--- NOTE | 2017-12-04 09:19 | PDHPUP ---
History & Physical Update H&P update statement: This history and physical update is based on an assessment of the patient which was completed after admission or registration (within 24 hours), but prior to the surgery/procedure. H&P update: H&P reviewed & patient examined, no change in patient's condition since H&P completed
--- NOTE | 2017-12-04 09:19 | PDPROPOC ---
Sedation Plan of Care Sedation Plan of Care: mental status noted, patient educated of risks, benefits , alternatives, patient can tolerate sedation ASA Classification: ASA 2 Planned drugs: fentanyl, midazolam Mallampati Score: Class 2 Mallampati Reference Image: Patient passed 3-3-2 rule?: Yes
[2017-12-04] MEDS ORDERED: HEPARIN 10,000 UNIT/10 ML MDV (1,000 UNIT/ML) ONE (09:51)
[2017-12-04] MEDS ORDERED: HYDROCODONE/APAP 5/325 TAB PO PRN (11:16)
[2017-12-04] MEDS ORDERED: NITROGLYCERIN 0.4 MG BTL SL PRN (11:16)
[2017-12-04] MEDS ORDERED: ATROPINE SULFATE 1 MG/10 ML SYR IVP PRN (11:16)
[2017-12-04] MEDS ORDERED: OXYCODONE/APAP 5/325 TAB PO PRN (11:16)
[2017-12-04] MEDS ORDERED: ALBUTEROL 60 PUFFS/8 GM MDI IH PRN (11:18)
[2017-12-04] MEDS ORDERED: LOPERAMIDE HCL 2 MG CAP PO PRN (11:18)
[2017-12-04] MEDS ORDERED: FLUTICASONE NASAL 120 SPRAYS/16 GM MDI EACHNARE PRN (11:18)
--- NOTE | 2017-12-04 12:39 | CPIP ---
[f rep st] INVASIVE CARDIAC PROCEDURE DATE OF PROCEDURE: 12/04/2017 INDICATION FOR PROCEDURE: Claudication. PROCEDURES: 1. Nonselective left groin sheathogram. 2. Runoff of left lower extremity. 3. Abdominal aortogram. 4. Selective catheter placement of right contralateral common femoral artery. 5. Runoff of right lower extremity. 6. ORACLE DIST[employer]BUTION CONSULTANT of right SFA utilizing Lutonix drug-coated balloon, 6.0 x 100 mm. 7. Placement of 3 [employer] self-expanding stents measuring 7.0 x 120, 7.0 x 100, and 7.0 x 60. 8. Placement of a [employer] 8.0 x 40 self-expanding stent in the right external iliac artery . HISTORY: Briefly, this is a 72-year-old male with history of worsening claudication bilaterally. Th e patient had an outpatient CTA that showed high-grade right bilateral SFA disease as well as right e xternal iliac disease. The patient, despite exercise program and maximal medical therapy, was having symptoms, so we decided to proceed forward with invasive angiography. DESCRIPTION OF PROCEDURE: After informed consent, the patient was brought to [facility] where the left groi n was prepped and draped in sterile fashion. Using lidocaine shows, a short 6-Senegalese sheath was intro duced into the left common femoral artery, verified angiographically. Runoff of the left lower extrem ity showed patent left common femoral artery, patent left profunda artery. The left SFA had diffuse d isease from its ostial portion down, rating up to 80% to 90%. The left SFA had a high-grade lesion of 90% lesion in its mid portion. The left SFA reconstituted by collaterals in the mid left SFA. His le ft popliteal artery appeared to be patent. At this time, a universal flush catheter was advanced to t he descending aorta, where an abdominal aortogram was obtained. This showed patent distal ascending a joseline, patent bilateral common iliac arteries, but the left common iliac artery had a mild 20% to 30% disease. There was a stent in the left external iliac artery, which appeared to be patent. The left i nternal iliac artery appeared to be diffusely diseased and patent. The right internal iliac artery earl d 90% ostial narrowing, but it was patent. The right external iliac artery had what appeared to be a tubular 70% to 80% stenosis but distally appeared to be widely patent. Prosper flush catheter was t hen advanced to the right common femoral artery where a runoff of the right lower extremity was obtai miah, which showed patent right ENGRAVER RUBBER, patent right profunda artery. The right SFA had patent proximal v essel going into an area of 99% occlusion. Distally to this, there was diffuse 70% disease throughout the mid thigh region of the SFA. Distally, the SFA appeared to be patent going into a popliteal area where there was diffuse 50% to 60% disease but no high-grade lesion. Infrapopliteal, there appeared to be single-vessel runoff to the foot via the peroneal artery, which gave off collaterals to both th e DP and PT at the level of the foot. At this time, a long stiff Glidewire was gently manipulated acr oss the lesion in the mid SFA. Prosper flush catheter was then removed. The short 6-Senegalese sheath w as removed. A 6-Senegalese 45 cm sheath was placed in the right contralateral common femoral artery, veri fied angiographically. INTERVENTION REPORT: The patient had been administered 600 mg of Plavix p.o. and given a total of 90 00 of heparin IV. First, our attention was turned to the SFA lesion. We proceeded with predilatation with a 4 x 100 balloon at 8 atmospheres across the area from the prox to mid SFA. After this was perf ormed, we then proceeded with placement of a drug-coated balloon, Lutonix, 6.0 x 120 mm. It was deplo yed across the midportion of the SFA and inflated to 10 atmospheres for 3 minutes' time. After deflat ion, this was pulled back gently and inflated for another minute in the proximal portion for 10 atmos pheres. After this was performed, the balloon was removed. Angiographic images were obtained, which t hen showed an improved patency of flow. However, there was a moderate to major dissection plane in th e mid SFA from the proximal to mid aspect. Given the dissection plane that was present, we decided to tack this area up to prevent this vessel from having acute vessel recoil. We decided to cover this u p with a self-expanding stent. A 7.0 x 120 mm [employer] stent was deployed from the mid dista l SFA back into the mid SFA. This was then followed by an additional 7 x 100 stent in overlap fashion and, finally, a 7 x 60 stent in overlap fashion. It was then post dilated with a 6 x 150 mm balloon at 10 atmospheres with 2 sequential inflations that were performed. Angiographic images were obtained , which showed excellent patency of the stented regions with no evidence of dissection or perforation . There was intact flow to the popliteal region. The balloon was then removed. Our attention was then turned to the area of the right external iliac artery. The catheter was pulled back, which revealed a 45 mm gradient across the external iliac artery. This was then redemonstrated in the contra-caudal view. We then proceeded with placement of direct stenting with a 8.0 x 40 mm stent deployed [facility], post dilated with a 7 x 40 balloon at 10 atmospheres. After this was performed, angiographic anabela ges were obtained, which showed excellent patency of the stented regions. At this time, the wire was removed. The guide catheter was removed. An 0.035 wire was placed with a short 7-Senegalese sheath. The p atient tolerated the procedure well with no complications. IMPRESSION: 1. Successful percutaneous transluminal angioplasty and stenting of right superficial femoral artery utilizing drug-coated balloon and self-expanding stents x3. 2. Successful repair of right external iliac artery disease utilizing self-expanding stent x1. PLAN: The patient will have the sheath discontinued when the ACT is less than 150. He will be discha rged home this morning. He will remain on aspirin and Plavix. Follow up in the office in 1 week's teofilo villanueva /[id number]/MODL
[2017-12-04] MEDS ORDERED: NICOTINE 21 MG/24 HR PATCH TD ONE (14:15)
[2017-12-04] MEDS ORDERED: ATORVASTATIN CALCIUM 40 MG TAB PO SCH (18:00)
[2017-12-04] MEDS ORDERED: glipiZIDE 5 MG TAB PO SCH (18:00)
[2017-12-04] MEDS ORDERED: metFORMIN SR 750 MG TAB.SR PO SCH (18:00)
[2017-12-04] MEDS ORDERED: OMEGA-3 FATTY ACIDS 1,000 MG CAP PO SCH (21:00)
[2017-12-04] MEDS ORDERED: guaiFENesin 600 MG TAB.ER PO SCH (21:00)
[2017-12-04] MEDS ORDERED: ELUXADOLINE 75 MG PO SCH (21:00)
[2017-12-04] MEDS ORDERED: traZODone 50 MG TAB PO SCH (21:00)
[2017-12-04] MEDS ORDERED: levETIRAcetam 500 MG TAB PO SCH (21:00)
[2017-12-04] MEDS ORDERED: DONEPEZIL HCL 23 MG PO SCH (21:00)
[2017-12-04] MEDS ORDERED: GABAPENTIN 400 MG CAP PO SCH (21:00)
[2017-12-05] MEDS ORDERED: METOPROLOL SUCCINATE XR 25 MG TAB PO SCH (09:00)
[2017-12-05] MEDS ORDERED: LISINOPRIL 40 MG TAB PO SCH (09:00)
[2017-12-05] MEDS ORDERED: MULTIVITAMINS 1 EACH TAB PO SCH (09:00)
[2017-12-05] MEDS ORDERED: MODAFINIL 100 MG TAB PO SCH (09:00)
[2017-12-05] MEDS ORDERED: NON-FORMULARY NEW DRUG (Memantine Hcl [Namenda Xr] 28 MG) PO SCH (09:00)
[2017-12-05] MEDS ORDERED: GLUCOSAMINE/CHONDROITIN CAP PO SCH (09:00)
[2017-12-05] MEDS ORDERED: ASPIRIN 325 MG TAB PO SCH (09:00)
[2017-12-05] MEDS ORDERED: SERTRALINE HCL 25 MG TAB PO SCH (09:00)
[2017-12-05] MEDS ORDERED: CLOPIDOGREL BISULFATE 75 MG TAB PO SCH (09:00)
[2017-12-05] MEDS ORDERED: VITAMIN B COMPLEX 1 EA CAP/TAB PO SCH (09:00)
[2017-12-05] MEDS ORDERED: PATCH REMOVAL 1 EA PATCH TD ONE (14:15)
== END 2017-12-04 18:10 | disposition home or self-care (01) ==
LOC: FCATH 08:20
PROVIDERS: ATTEND Internal Medicine Cardiovascular Disease
PROC: 047H341 Dilation of Right External Iliac Artery with Drug-eluting Intraluminal Device, using Drug-Coated Balloon, Percutaneous Approach (ICD-10-PCS; principal; 2017-12-04)
PROC: 047K341 Dilation of Right Femoral Artery with Drug-eluting Intraluminal Device, using Drug-Coated Balloon, Percutaneous Approach (ICD-10-PCS; principal; 2017-12-04)
DX: I70.211 Atherosclerosis of native arteries of extremities with intermittent claudication, right leg (principal); I25.10 Atherosclerotic heart disease of native coronary artery without angina pectoris; I10 Essential (primary) hypertension; E78.5 Hyperlipidemia, unspecified; E11.51 Type 2 diabetes mellitus with diabetic peripheral angiopathy without gangrene; I63.9 Cerebral infarction, unspecified; Z85.828 Personal history of other malignant neoplasm of skin; F17.200 Nicotine dependence, unspecified, uncomplicated; Z95.5 Presence of coronary angioplasty implant and graft
CPT/HCPCS: 37221; 37226; 75716; 93005; C1725; C1769; C1876; J1644; J2250; J2405; J3010; Q9967

== ENCOUNTER → 2018-05-26 | Outpatient (CLI) | payer OTHER | LOC: FIMAGING 13:58 | PROVIDERS: ATTEND Family Medicine | DX: M75.111 Incomplete rotator cuff tear or rupture of right shoulder, not specified as traumatic (principal); M75.81 Other shoulder lesions, right shoulder; M75.21 Bicipital tendinitis, right shoulder; M19.011 Primary osteoarthritis, right shoulder; M25.711 Osteophyte, right shoulder ==

== ENCOUNTER 2018-06-23 14:02 | Emergency (ER) | payer OTHER ==
[2018-06-23 16:20] VITALS: BP 181/76
--- NOTE | 2018-06-23 16:38 | EDPHY ---
H & P Stated Complaint: pt. states last few months intermittent lt low ack and lft quad pain Time Seen by Provider: 06/23/18 14:10 HPI/ROS: CHIEF COMPLAINT: Left leg and low back pain History by patient HISTORY OF PRESENT ILLNESS: 73-year-old man with multiple medical problems presents complaining of 1 month of increasing pain in his left leg buttock and low back. Patient states that it comes on gradually but can get really severe. It is intermittent and typically is worse at night. It is not necessarily related to movement. He says when it gets really bad causes difficulty walking but when it is mild he can walk without difficulty. Last night it was so severe he could not sleep all night prompting him to finally seek medical attention for it today. Currently he says the pain is not too bad but he feels like it is going to get worse. Although it radiates from his left low back and buttock into his leg it does not go below his knee and is not shooting pain like an electric shock. He has chronic neuropathy in his feet from his diabetes and this is unrelated to his back pain. He also has ongoing incontinence related to chronic diarrhea and prostate issues which is also been unrelated and predates his back pain. Last night he took some ibuprofen and Tylenol with minimal relief. He says he also took a Percocet of his 's which did help him. He denies any fever chills. He has had some weight loss but he relates this to his difficulty chewing and swallowing from his stroke. He has had no trauma or fall that incited the pain. REVIEW OF SYSTEMS: As in HPI, and all other systems reviewed and are negative Source: Patient - Personal History Current Tetanus Diphtheria and Acellular Pertussis (TDAP): Unsure - Medical/Surgical History Hx Asthma: No Hx Chronic Respiratory Disease: No Hx Diabetes: Yes Hx Cardiac Disease: Yes Hx Renal Disease: No Hx Cirrhosis: No Hx Alcoholism: No Hx HIV/AIDS: No Hx Splenectomy or Spleen Trauma: No Other PMH: diabetes, heart stents, angina, neuropathy, nosebleeds, sx: stents, hernias. 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 Head: Normocephalic, atraumatic Eyes: Pupils equal and round, no pallor or injection. ENT, Mouth: Mucous membranes moist. Neck: No bony tenderness, full range of motion Gastrointestinal: Abdomen is soft and nontender, no masses, bowel sounds normal. Neurological: Awake, alert and oriented x 3, no pronator drift, shuffling gait , no pronator drift, DTRs 2+ and equal bilaterally in knees and ankles, no pain with straight leg raise, strength is 5/5 and equal bilaterally in lower extremities Back: No bony tenderness, no CVA tenderness, no buttock tenderness Skin: Warm and dry, no rashes. Musculoskeletal: Neck is supple, FROM, nontender. Hip with full range of motion without pain, pelvis stable and nontender Extremities: symmetrical, full range of motion. DP and PT pulses are palpable and equal bilaterally Psychiatric: Patient has normal affect, there is no agitation. Constitutional: Initial Vital Signs Temperature (C) 36.9 C 06/23/18 14:17 Heart Rate 61 06/23/18 14:17 Respiratory Rate 16 06/23/18 14:17 Blood Pressure 142/76 H 06/23/18 14:17 O2 Sat (%) 94 06/23/18 14:17 O2 Delivery Mode Room Air Allergies/Adverse Reactions: Sulfa (Sulfonamide Antibiotics) Allergy (Mild, Verified 06/23/18 14:10) Other-Enter Comments Home Medications: Medication Instructions Recorded Aspirin [Aspirin 325 mg (*)] 325 mg PO DAILY 12/29/14 Glucosamine/Chondroitin 1 each PO DAILY 12/29/14 [Glucosamine/Chondroitin (*)] Atorvastatin Calcium [Lipitor 40 40 mg PO DAILY18 02/03/17 mg (*)] Donepezil HCl [Aricept] 23 mg PO HS 02/03/17 Vitamin B Complex [B Complex] 1 each PO DAILY 02/03/17 glipiZIDE [Glipizide] 5 mg PO BIDMEAL 02/03/17 Albuterol [Proventil Inhaler HFA 2 puffs IH Q4HRS PRN #0 mdi 02/23/17 (*)] Clopidogrel Bisulfate [Plavix (*)] 75 mg PO DAILY #0 tab 02/23/17 Loperamide HCl [Imodium 2 mg (*)] 2 mg PO PRN PRN #0 cap 02/23/17 levETIRAcetam [Keppra 500 mg (*)] 500 mg PO BID #0 tab 02/23/17 traZODone [traZODONE 50MG (*)] 25 mg PO HS #0 tab 02/23/17 Fluticasone Nasal [Flonase Nasal 1 sprays EACHNARE BID PRN 11/29/17 [place]] Gabapentin [Neurontin 400 MG (*)] 1,200 mg PO BID 11/29/17 Lisinopril [Zestril 40 mg (*)] 40 mg PO DAILY 11/29/17 Memantine HCl [Namenda Xr] 28 mg PO DAILY 11/29/17 Metoprolol Succinate Xr [Toprol Xl 12.5 mg PO DAILY 11/29/17 25 mg (*)] Modafinil [Provigil 100 mg (*)] 200 mg PO DAILY 11/29/17 Multivitamins [Multivitamin (*)] 1 each PO DAILY 11/29/17 [place]-3 Fatty Acids [Fish Oil 1000 1,000 mg PO BID 11/29/17 mg (*)] Sertraline HCl [Zoloft 25mg (*)] 25 mg PO DAILY 11/29/17 amLODIPine BESYLATE [Norvasc 10 mg 10 mg PO DAILY18 11/29/17 (*)] metFORMIN SR [Glucophage XR 750 mg 750 mg PO BIDMEAL 11/29/17 (*)] Lidocaine [Lidoderm] 1 each TP DAILY PRN #30 adh..patch 06/23/18 Medical Decision Making - Diagnostics Imaging Results: Imaging Impressions Hip X-Ray 06/23/18 15:21 Impression: No evidence of acute, displaced fracture. Lumbar Spine X-Ray 06/23/18 15:21 Impression: 1. Moderate/severe lumbar spondylosis greatest at L3-L4. 2. Mild retrolisthesis of L2 on L3, and L3 on L4. 3. No acute, displaced fracture identified. Imaging: I viewed and interpreted images myself ED Course/Re-evaluation: 73-year-old male with multiple medical problems and 1 month of worsening back and leg pain. X-ray of the lumbar spine showed no acute compression fracture or mass. There were some spondylitic changes, which may account for some of the patient's symptoms. Hip and pelvis x-rays were unremarkable. Will continue to treat patient symptomatically with adequate dose of Tylenol, topical lidocaine patches and the addition of occasional ibuprofen if needed. Patient requested Percocet however given his age and multiple comorbidities and medications we discussed how this would not be a safe medication for him. I do recommend he follows up closely with his primary care physician Dr. Russell who can consider an MRI and/or physical therapy. Patient understands and is agreeable to this plan. Departure - Departure Disposition: Home, Routine, Self-Care Clinical Impression: Low back pain radiating down leg Condition: Fair Instructions: Acute Low Back Pain (ED) Additional Instructions: You were seen by Dr. Marii Fields today. You may take acetaminophen (Tylenol) 1000 mg 4 times a day along with topical lidocaine patches as needed for pain. If he needed additional pain medication you may add ibuprofen 600 mg, but avoid taking regular ibuprofen and take with food. Please follow-up with Dr. Russell next week to discuss the need for further imaging studies and physical therapy. Return for any worsening or new concerns. Referrals: Sedrick Russell DO [Primary Care Provider] - As per Instructions Prescriptions: Lidocaine [Lidoderm] 1 each TP DAILY PRN #30 adh..patch PRN Reason: pain
== END 2018-06-23 16:43 | disposition home or self-care (01) ==
LOC: CED 14:02
DX: M54.16 Radiculopathy, lumbar region (principal)
CPT/HCPCS: 72100-PO; 73502-PO